=== PATIENT | female | born 1990 | race African-American/Black ===

== ENCOUNTER 2017-01-15 09:06 | Emergency (ER) | payer OTHER ==
[2017-01-15 09:19] VITALS: BP 125/72; PULSE 111; TEMP 98; BMI 31.0
--- NOTE | 2017-01-15 10:26 | PDOC ---
History of Present Illness - General Chief Complaint: Cold Symptoms Stated Complaint: STREP THROAT Time Seen by Provider: 01/15/17 09:35 History Source: Patient Exam Limitations: No Limitations - History of Present Illness Initial Comments: 01/15/17 10:27 Chief complaint: Sore throat, productive cough with yellowish green sputum, nasal congestion 4 days History of present illness: Patient is a 26-year-old female with a history of asthma here today complaining of sore throat, with nasal congestion, and productive cough with yellowish green sputum for the last 4 days. Patient reports that yesterday she used her asthma pump 3 times did not use it at all today. Patient denies any shortness of breath or difficulty swallowing. 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 Patient denies any nausea vomiting or diarrhea. Patient denies any recent travel. Patient denies any fever. Timing/Duration: intermittent (for 4 days ) Severity: mild Associated Symptoms: reports: cough (productive greenish phelgm ), other (nasal congestion, sore throAt, wheezing yesterday ) Past History - Past Medical History Allergies/Adverse Reactions: Allergies Allergy/AdvReac Type Severity Reaction Status Date / Time No Known Allergies Allergy Verified 01/15/17 09:16 Home Medications: Ambulatory Orders Azithromycin [Zithromax 250mg Tablets -] 250 mg PO UTDICT #6 tab 01/15/17 Asthma: Yes Cancer: No Cardiac Disorders: No Diabetes: No HTN: No Seizures: No Thyroid Disease: No - Psycho/Social/Smoking Cessation Hx Anxiety: No Suicidal Ideation: No Smoking History: Current every day smoker Have you smoked in the past 12 months: Yes Number of Cigarettes Smoked Daily: 10 Information on smoking cessation initiated: No Hx Alcohol Use: No Drug/Substance Use Hx: No Substance Use Type: None Hx Substance Use Treatment: No Review of Systems - Review of Systems Able to Perform ROS?: Yes Constitutional: No: Symptoms Reported HEENTM: Yes: Nose Congestion, Throat Pain Respiratory: Yes: Productive cough (greenish yellow ) Cardiac (ROS): No: Symptoms Reported ABD/GI: No: Symptoms Reported : No: Symptoms Reported Musculoskeletal: No: Symptoms Reported Integumentary: No: Symptoms Reported Neurological: No: Symptoms reported *Physical Exam - Vital Signs Last Vital Signs Temp Pulse Resp BP Pulse Ox 98 F 111 H 19 125/72 99 01/15/17 09:17 01/15/17 09:17 01/15/17 09:17 01/15/17 09:17 01/15/17 09:17 - Physical Exam General Appearance: Yes: Appropriately Dressed HEENT: positive: TMs Normal, Pharyngeal Erythema, Nasal Congestion, Rhinorrhea ( clear). negative: Tonsillar Exudate, Tonsillar Erythema Neck: negative: Lymphadenopathy (R), Lymphadenopathy (L) Respiratory/Chest: positive: Lungs Clear, Normal Breath Sounds. negative: Chest Tender, Respiratory Distress Cardiovascular: positive: Regular Rhythm, Regular Rate, S1, S2 Integumentary: positive: Normal Color Neurologic: positive: Alert, Responsive Medical Decision Making - Medical Decision Making 01/15/17 10:30 Patient is a 26-year-old female with a history of asthma here today complaining of sore throat, with nasal congestion, and productive cough with yellowish green sputum for the last 4 days. Patient reports that yesterday she used her asthma pump 3 times did not use it at all today. Patient denies any shortness of breath or difficulty swallowing. 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 Patient denies any nausea vomiting or diarrhea. Patient denies any recent travel. Patient denies any fever. 01/15/17 10:31 pharyngitis r/o strep throat Bronchitis PLAN: throat C & S rapid negative azithromycin 250 mg 2 tabs today, than one tab daily for following 4 days 01/15/17 11:38 *DC/Admit/Observation/Transfer Diagnosis at time of Disposition: Bronchitis Pharyngitis, acute Qualifiers: Pharyngitis/tonsillitis etiology: unspecified etiology Qualified Code(s): J02.9 - Acute pharyngitis, unspecified - Discharge Dispostion Disposition: HOME Condition at time of disposition: Stable - Patient Instructions Additional Instructions: follow up with primary care physician as soon as possible return to emergency room if symptoms worsen or any difficulty breathing use pump as needed as previously ordered Patient voiced undertanding of discharge instructions and all questions were answered
== END 2017-01-15 11:51 | disposition home or self-care (01) ==
LOC: JERFT 09:06
DX: J40 Bronchitis, not specified as acute or chronic (principal); J02.9 Acute pharyngitis, unspecified; J45.909 Unspecified asthma, uncomplicated; F17.210 Nicotine dependence, cigarettes, uncomplicated
CPT/HCPCS: 87070; 87430; 99281-25

== ENCOUNTER 2017-05-06 13:56 | Emergency (ER) | payer OTHER ==
[2017-05-06 14:09] VITALS: BP 143/92; PULSE 89; TEMP 98.2; BMI 30.5
--- NOTE | 2017-05-06 14:59 | PDOC ---
History of Present Illness - General Chief Complaint: Pain Stated Complaint: SENT BY PCP FOR RIB PAIN Time Seen by Provider: 05/06/17 14:15 - History of Present Illness Initial Comments: 05/06/17 14:46 CHIEF COMPLAINT: rib pain HISTORY OF PRESENT ILLNESS: 26 yo F with no significant PMH [facility] with rib pain x 1 week. Patient reports that she saw her PMD last week for the rib pain and had a negative chest x-ray. Patient states she feels pain on inspiration and the pain is reproducible. She states that she was told by her doctor that she had "swelling to the cartilage between my ribs." She reports that she was told to take Aleve and use a heating pad, which she did, but that did not provide any relief. She denies any use of hormones or control, any recent travel or extend period of being sedentary. She denies any recent trauma or injury. PAST MEDICAL HISTORY: Denies past medical history FAMILY HISTORY: Denies SOCIAL HISTORY:Current smoker. Denies alcohol, illicit drug use. SURGICAL HISTORY: Denies ALLERGIES: No known drug allergies REVIEW OF SYSTEMS General/Constitutional: Denies fever or chills. Denies weakness, weight change. HEENT: Denies change in vision. Denies ear pain or discharge. Denies sore throat. Cardiovascular: "I guess kind of some shortness of breath." Respiratory: Denies cough, wheezing, or hemoptysis. Gastrointestinal: Denies nausea, vomiting, diarrhea or constipation. Denies rectal bleeding. Genitourinary: Denies dysuria, frequency, or change in urination. Musculoskeletal: Pain to left lower ribs. Denies joint or muscle swelling or pain. Denies neck or back pain. Skin and breasts: Denies rash or easy bruising. PHYSICAL EXAM General Appearance: Well-appearing, appropriately dressed. No apparent distress. HEENT: EOMI, PERRLA, normal ENT inspection, normal voice, TMs normal, pharynx normal. No conjunctival pallor. No photophobia, scleral icterus. Neck: Supple. Trachea midline. No tenderness, rigidity, carotid bruit, stridor , lymphadenopathy, or thyromegaly. Respiratory/Chest: Lungs CTAB. No shortness of breath, chest tenderness, respiratory distress, accessory muscle use. No crackles, rales, rhonchi, stridor , wheezing, dullness Cardiovascular: RRR. S1, S2. Gastrointestinal/Abdominal: Normal bowel sounds. Abdomen soft, non-distended. No tenderness or rebound tenderness. No organomegaly, pulsatile mass, guarding , hernia, hepatomegaly, splenomegaly. Musculoskeletal/Extremities: Reproducible tenderness to L lower rib. FROM of all extremities, normal capillary refill. Pelvis Stable. No CVA tenderness. No tenderness to extremities, pedal edema, swelling, erythema or deformity. Integumentary: Appropriate color, dry, warm. No cyanosis, erythema, jaundice or rash Neurologic: public health aide II-XII intact. Fully oriented, alert. Appropriate mood/affect. Motor strength 5/5. No Past History - Past Medical History Allergies/Adverse Reactions: Allergies Allergy/AdvReac Type Severity Reaction Status Date / Time No Known Allergies Allergy Verified 05/06/17 14:09 Home Medications: Ambulatory Orders Cyclobenzaprine HCl [Flexeril 10 mg] 10 mg PO HS PRN #5 tablet 05/06/17 Diclofenac Sodium [Voltaren -] 75 mg PO BID #28 tablet. 05/06/17 Asthma: Yes Cancer: No Cardiac Disorders: No Diabetes: No HTN: No Seizures: No Thyroid Disease: No - Psycho/Social/Smoking Cessation Hx Anxiety: No Suicidal Ideation: No Smoking History: Current every day smoker Have you smoked in the past 12 months: Yes Number of Cigarettes Smoked Daily: 10 Information on smoking cessation initiated: No Hx Alcohol Use: No Drug/Substance Use Hx: No Substance Use Type: None Hx Substance Use Treatment: No *Physical Exam - Vital Signs Last Vital Signs Temp Pulse Resp BP Pulse Ox 98.2 F 89 20 143/92 98 05/06/17 14:06 05/06/17 14:06 05/06/17 14:06 05/06/17 14:06 05/06/17 14:06 Medical Decision Making - Medical Decision Making 05/06/17 14:59 26 yo F with no significant PMH [facility] with [facility] pain x 1 week. Vital signs stable. LMP 05/02, patient reports possible chance of . -Urine -Toradol IM Patient is PERC negative. Agree with patient's PMD that patient's rib pain is secondary to costochondritis or msk pain. Patient reassessed; states her pain is feeling better after Toradol. Rx for Diclofenac sent to pharm. Advised patient to take medication as prescribed and f/u with PMD if pain persists. *DC/Admit/Observation/Transfer Diagnosis at time of Disposition: Intercostal muscle pain - Discharge Dispostion Disposition: HOME Condition at time of disposition: Stable Admit: No - Prescriptions Prescriptions: Cyclobenzaprine HCl [Flexeril 10 mg] 10 mg PO HS PRN #5 tablet PRN Reason: muscle pain Diclofenac Sodium [Voltaren -] 75 mg PO BID #28 tablet.dr - Referrals Referrals: Lloyd Stanford MD [Primary Care Provider] - - Patient Instructions Printed Discharge Instructions: DI for Costochondritis, Muscle Strain Additional Instructions: Please take medication as prescribed. Follow up with Dr. Stanford on May 21 as planned. If you develop any palpitations, difficulty breathing, chest pain, fever, chills, headache, vomiting, or any new or worsening symptoms, please return to the ER.
[2017-05-06] MEDS ORDERED: KETOROLAC TROMETHAMINE 60 MG/2 ML VIAL IM ONE (15:36)
[2017-05-06] MEDS ORDERED: KETOROLAC TROMETHAMINE 60 MG/2 ML VIAL ONE (15:57)
== END 2017-05-06 16:42 | disposition home or self-care (01) ==
LOC: JERFT 13:56
PROC: 3E0233Z Introduction of Anti-inflammatory into Muscle, Percutaneous Approach (ICD-10-PCS; principal; 2017-05-06)
DX: M94.0 Chondrocostal junction syndrome [Tietze] (principal)
CPT/HCPCS: 84703; 96372; 99281-25

== ENCOUNTER 2017-08-01 12:31 | Emergency (ER) | payer OTHER ==
[2017-08-01 12:38] VITALS: TEMP 98.4; BMI 29.0
--- NOTE | 2017-08-01 12:56 | PDOC ---
History of Present Illness - General Chief Complaint: Pain Stated Complaint: LOWER PELVIC PAIN Time Seen by Provider: 08/01/17 12:55 Past History - Past Medical History Allergies/Adverse Reactions: Allergies Allergy/AdvReac Type Severity Reaction Status Date / Time No Known Allergies Allergy Verified 08/01/17 12:37 Home Medications: Ambulatory Orders Albuterol Sulfate Inhaler - [Ventolin Hfa Inhaler -] 1 - 2 inh PO Q4H 08/01/17 Ciprofloxacin [Cipro -] 500 mg PO Q12H #14 tablet 08/01/17 Metronidazole 500 mg PO TID #30 tablet 08/01/17 Mometasone/Formoterol [Dulera 100 Mcg/5 Mcg Inhaler] 2 inh IH BID 08/01/17 Tramadol HCl 50 mg PO TID PRN #10 tablet MDD 3 08/01/17 Asthma: Yes Cancer: No Cardiac Disorders: No Diabetes: No HTN: No Seizures: No Thyroid Disease: No - Suicide/Smoking/Psychosocial Hx Smoking History: Current every day smoker Have you smoked in the past 12 months: Yes Number of Cigarettes Smoked Daily: 10 Information on smoking cessation initiated: Yes 'Breaking Loose' booklet given: 08/01/17 Hx Alcohol Use: Yes (SOCIAL) Drug/Substance Use Hx: No Substance Use Type: None Hx Substance Use Treatment: No *Physical Exam - Vital Signs Last Vital Signs Temp Pulse Resp BP Pulse Ox 98.4 F 83 20 144/91 100 08/01/17 12:34 08/01/17 12:34 08/01/17 12:34 08/01/17 12:34 08/01/17 12:34 ED Treatment Course - LABORATORY CBC & Chemistry Diagram: 08/01/17 13:45 08/01/17 13:45 Medical Decision Making - Medical Decision Making 08/01/17 16:28 Patient is a 26-year-old female past medical history of ovarian cysts, who presents to the emergency department complaining of right lower abdominal pain, nausea and diarrhea. Differential diagnosis includes but is not limited to appendicitis, colitis, ovarian cysts, viral illness. 1.CBC, CMP, lipase, PT/INR, UA, UC, U 2.CT abdomen with contrast 3.IV fluids, Zofran 08/01/17 17:25 Pt. still c/o pain. Will order 4mg IV morphine 08/01/17 18:14 Impression: 1.normal appendix. No evidence of intestinal obstruction. 2.apparent wall thickening in the descending colon into a lesser extent into the ascending colon may be secondary to under distention, although a mild nonspecific inflammatory or infectious colitis is not entirely excluded please correlate clinically. Upon further history patient states that she didn't take amoxicillin approximately 4 weeks ago and finished a 1 week course 3 weeks ago for wisdom teeth extraction. C. difficile is within the scope of differential diagnosis given diarrhea colon wall inflammation. We'll treat with antibiotics as an outpatient. We'll collect stool for occult blood and stool cultures. *DC/Admit/Observation/Transfer Diagnosis at time of Disposition: Colitis - Discharge Dispostion Disposition: HOME Condition at time of disposition: Improved Admit: No - Referrals Referrals: Lloyd Stanford MD [Primary Care Provider] - Bertram Russ MD [Staff Physician] - - Patient Instructions Printed Discharge Instructions: DI for Colitis Additional Instructions: You have colitis which may have been caused by your recent antibiotic use. You were prescribed two antibiotics. Take both as prescribed and finish the whole dose even if you feel better. You may take ibuprofen for pain, 800mg TID not to exceed 3,000mg per day. If you have break through pain, you may take the tramadol. Take as prescribed. Follow up with your primary care doctor on Thursday. You were given a referral for a gastrointestinal doctor. Make an appointment to see him on Thursday. Return to the ED if you have fevers, chills, worsening pain, nausea, vomiting, blood in the stool, or have any changes in your symptoms. - Post Discharge Activity Forms/Work/School Notes: Back to Work
[2017-08-01] MEDS ORDERED: ONDANSETRON 4 MG/2 ML VIAL IVPUSH ONE (13:34)
[2017-08-01] MEDS ORDERED: SODIUM CHLORIDE 1,000 ML IV STA ×2 (13:34→16:37)
[2017-08-01] MEDS ORDERED: KETOROLAC TROMETHAMINE 30 MG/1 ML VIAL IVPUSH ONE (13:36)
[2017-08-01] MEDS ORDERED: ONDANSETRON 4 MG/2 ML VIAL ONE (13:49)
[2017-08-01] MEDS ORDERED: KETOROLAC TROMETHAMINE 30 MG/1 ML VIAL ONE (13:49)
[2017-08-01 13:52] LABS: URINE APPEARANCE CLEAR; URINE BILIRUBIN NEGATIVE (NEGATIVE); URINE BLOOD NEGATIVE (NEGATIVE); URINE COLOR YELLOW; URINE GLUCOSE (UA) NEGATIVE (NEGATIVE); URINE KETONE TRACE (NEGATIVE); URINE LEUK ESTERASE NEGATIVE (NEGATIVE); URINE NITRITE NEGATIVE (NEGATIVE); URINE PROTEIN NEGATIVE (NEGATIVE); URINE UROBILINOGEN NEGATIVE mg/dL (0.2-1.0)
[2017-08-01 13:53] LABS: BASOPHIL 0.6 % (0-2.0); MCH 31.7 pg (25.7-33.7); MCHC 33.5 g/dl (32.0-36.0); MEAN CELL VOLUME 94.5 fl (80-96); MEAN PLT VOLUME 9.5 fl (7.5-11.1); PLATELET COUNT 252 K/MM3 (134-434); WHITE BLOOD COUNT 7.1 K/mm3 (4.0-10.0)
[2017-08-01 14:09] LABS: INR 1.21 (0.82-1.09); PROTHROMBIN TIME (PATIENT) 13.4 SEC (9.98-11.88)
[2017-08-01 14:12] LABS: ALBUMIN 4.5 g/dl (3.4-5.0); ANION GAP 7 (8-16); BILIRUBIN,TOTAL 0.2 mg/dL (0.2-1.0); CALCIUM 9.6 mg/dL (8.5-10.1); CO2 29 mmol/L (21-32); CREATININE 0.9 mg/dL (0.55-1.02); GLUCOSE,RANDOM 84 mg/dL (74-106); SGOT/AST 16 U/L (15-37); SGPT/ALT 28 U/L (12-78); TOT PROT 7.8 g/dl (6.4-8.2)
[2017-08-01 14:13] LABS: ALK PHOS 88 U/L (45-117)
[2017-08-01] MEDS ORDERED: morphine CARPU-JECT 4 MG/1 ML DISP.SYRIN IVPUSH ONE (17:19)
[2017-08-01] MEDS ORDERED: morphine CARPU-JECT 4 MG/1 ML DISP.SYRIN ONE (17:22)
[2017-08-01 18:39] VITALS: BP 116/73; PULSE 48
--- NOTE | 2017-08-01 18:43 | PDOC ---
*Physical Exam - Vital Signs Last Vital Signs Temp Pulse Resp BP Pulse Ox 98.4 F 83 20 144/91 100 08/01/17 12:34 08/01/17 12:34 08/01/17 12:34 08/01/17 12:34 08/01/17 12:34 ED Treatment Course - LABORATORY CBC & Chemistry Diagram: 08/01/17 13:45 08/01/17 13:45 - ADDITIONAL ORDERS Additional order review: Laboratory Results 08/01/17 08/01/17 08/01/17 18:03 13:45 13:45 PT with INR INR Sodium 140 Potassium 3.9 Chloride 104 Carbon Dioxide 29 D Anion Gap 7 L BUN 12 Creatinine 0.9 D Creat Clearance w eGFR > 60 Random Glucose 84 Calcium 9.6 Total Bilirubin 0.2 AST 16 ALT 28 D Alkaline Phosphatase 88 D Total Protein 7.8 Albumin 4.5 D Lipase 88 Urine Color Urine Appearance Urine pH Urine Protein Urine Glucose (UA) Urine Ketones Urine Blood Urine Nitrite Urine Bilirubin Urine Urobilinogen Urine HCG, Qual Stool Occult Blood Negative 08/01/17 08/01/17 13:45 13:20 PT with INR 13.40 H INR 1.21 H Sodium Potassium Chloride Carbon Dioxide Anion Gap BUN Creatinine Creat Clearance w eGFR Random Glucose Calcium Total Bilirubin AST ALT Alkaline Phosphatase Total Protein Albumin Lipase Urine Color Yellow Urine Appearance Clear Urine pH 8.0 Urine Protein Negative Urine Glucose (UA) Negative Urine Ketones Trace H Urine Blood Negative Urine Nitrite Negative Urine Bilirubin Negative Urine Urobilinogen Negative Urine HCG, Qual Negative Stool Occult Blood 08/01/17 13:45 RBC 4.38 D MCV 94.5 MCHC 33.5 RDW 14.0 MPV 9.5 Neutrophils % 60.0 D Lymphocytes % 30.2 D Monocytes % 8.2 Eosinophils % 1.0 Basophils % 0.6 - Medications Given in the ED: ED Medications Discontinued Medications Generic Name Dose Route Start Last Admin Trade Name Freq PRN Reason Stop Dose Admin Sodium Chloride 1,000 mls @ 1,000 mls/hr 08/01/17 13:34 08/01/17 13:54 Normal Saline - IV 08/01/17 14:33 1,000 mls/hr ASDIR STA Administration Sodium Chloride 1,000 mls @ 1,000 mls/hr 08/01/17 16:37 08/01/17 16:50 Normal Saline - IV 08/01/17 17:36 1,000 mls/hr ASDIR STA Administration Ketorolac Tromethamine 30 mg 08/01/17 13:36 08/01/17 13:54 Toradol Injection - IVPUSH 08/01/17 13:37 30 mg ONCE ONE Administration Morphine Sulfate 4 mg 08/01/17 17:19 08/01/17 17:36 Morphine Injection - IVPUSH 08/01/17 17:20 4 mg ONCE ONE Administration Ondansetron HCl 4 mg 08/01/17 13:34 08/01/17 13:54 Zofran Injection IVPUSH 08/01/17 13:35 4 mg ONCE ONE Administration Medical Decision Making - Medical Decision Making 08/01/17 18:17 26 yo F presenting to the ER with a complaint of abdominal pain and diarrhea No fevers or chills Pt s/p course of Amoxicillin CT demonstrates colitis ? C diff Pt to be asked to give stool culture 08/01/17 18:18 Pt seen by Midlevel Provider under my direct supervision Pt interviewed and examined Ancillary studies reviewed I agree with plan as outlined by Midlevel Provider
== END 2017-08-01 20:31 | disposition home or self-care (01) ==
LOC: JER 12:31
PROC: 3E0337Z Introduction of Electrolytic and Water Balance Substance into Peripheral Vein, Percutaneous Approach (ICD-10-PCS; principal; 2017-08-01)
PROC: 3E033NZ Introduction of Analgesics, Hypnotics, Sedatives into Peripheral Vein, Percutaneous Approach (ICD-10-PCS; 2017-08-01)
PROC: 3E0333Z Introduction of Anti-inflammatory into Peripheral Vein, Percutaneous Approach (ICD-10-PCS; 2017-08-01)
DX: K52.9 Noninfective gastroenteritis and colitis, unspecified (principal)
CPT/HCPCS: 36415; 74177-TC; 80053; 81003; 82272; 83690; 84703; 85025; 85610; 87086; 96361; 96374; 96375; 99283-25

== ENCOUNTER 2017-08-20 10:29 | Emergency (ER) | payer OTHER ==
[2017-08-20 10:57] VITALS: BMI 30.2
[2017-08-20] MEDS ORDERED: morphine CARPU-JECT 2 MG/1 ML DISP.SYRIN IVPUSH ONE (11:14)
[2017-08-20] MEDS ORDERED: ONDANSETRON 4 MG/2 ML VIAL IVPB ONE (11:14)
[2017-08-20] MEDS ORDERED: SODIUM CHLORIDE 1,000 ML IV ONE (11:14)
--- NOTE | 2017-08-20 11:14 | PDOC ---
History of Present Illness - General History Source: Patient Exam Limitations: No Limitations - History of Present Illness Initial Comments: 08/20/17 11:27 The patient is a 26 year old female, with a significant past medical history of asthma, who presents to the emergency department with abdominal pain for about 2 weeks. The patient reports about 2 weeks, 08/01/17, during the onset of her symptoms coming this ER receiving a full work for abdominal pain, nausea,and vomiting. She notes after an abdominal CT she was diagnosed with colitis, and was discharged home on antibiotics (Cipro and Flagyl) and her sypmtoms improved. She states the past few days, since stopping her prescription having the onset of her pain, describing it as a dull ache sensation with sensations of having a bowel movement but hasnt had any diarrhea, bpr. LMP was beginning of July (patient is sexually active). She denies recent fevers, chills, headache or dizziness. She denies recent constipation. She denies recent dysuria, frequency, vag bleeding or discharge, urgency or hematuria. She denies recent chest pain or shortness of breath. Allergies: NKA Past surgical history: None reported. Social history: Nonsmoker. Denies EtOH use and recreational drug use. Primary Care Physician: <Emmett Bach - Last Filed: 08/20/17 11:27> - General History Source: Patient Exam Limitations: No Limitations <Antonio Cantu - Last Filed: 08/20/17 14:33> - General Chief Complaint: Pain, Acute Stated Complaint: NAUSEA Time Seen by Provider: 08/20/17 11:01 Past History <Emmett Bach - Last Filed: 08/20/17 11:27> - Past Medical History Asthma: Yes Cancer: No Cardiac Disorders: No Diabetes: No HTN: No Seizures: No Thyroid Disease: No - Immunization History Immunization Up to Date: Yes - Suicide/Smoking/Psychosocial Hx Smoking History: Current every day smoker Have you smoked in the past 12 months: Yes Number of Cigarettes Smoked Daily: 10 Information on smoking cessation initiated: No 'Breaking Loose' booklet given: 08/01/17 Hx Alcohol Use: No Drug/Substance Use Hx: No Substance Use Type: None Hx Substance Use Treatment: No <Antonio Cantu - Last Filed: 08/20/17 14:33> - Past Medical History Allergies/Adverse Reactions: Allergies Allergy/AdvReac Type Severity Reaction Status Date / Time No Known Allergies Allergy Verified 08/20/17 10:54 Home Medications: Ambulatory Orders Albuterol Sulfate Inhaler - [Ventolin Hfa Inhaler -] 1 - 2 inh PO Q4H PRN Review of Systems - Review of Systems Able to Perform ROS?: Yes Comments:: 08/20/17 11:27 CONSTITUTIONAL: No reported: Fever, Chills, Diaphoresis, Generalized Weakness, Malaise, Loss of Appetite HEENT: No reported: Rhinorrhea, Nasal Congestion, Throat Pain, Throat Swelling, Difficulty Swallowing, Mouth Swelling, Ear Pain, Eye Pain, Visual Changes CARDIOVASCULAR: No reported: Chest Pain, Syncope, Palpitations, Irregular Heart Rate, Lightheadedness, Peripheral Edema RESPIRATORY: No reported: Cough, Shortness of Breath, SOB with Exertion, Orthopnea, Wheezing , Stridor, Hemoptysis GASTROINTESTINAL: +Abdominal pain, Nausea, Diarrhea, Vomiting. No reported: Constipation, Melena, Hematochezia GENITOURINARY: No reported: Dysuria, Frequency, Urgency, Hesitancy, Flank Pain, Genital Pain MUSCULOSKELETAL: No reported: Myalgia, Arthralgia, Joint Swelling, Back pain, Neck Pain SKIN: No reported: Rash, Itching, Pallor HEMATOLOGIC/IMMUNOLOGIC: No reported: Easy Bleeding, Easy Bruising, Lymphadenopathy, Frequent infections ENDOCRINE: No reported: Unexplained Weight Gain, Unexplained Weight Loss, Heat Intolerance , Cold Intolerance NEUROLOGIC: No reported: Headache, Focal Weakness, Paresthesias, Vertigo, Lightheadedness, Unsteady Gait, Seizure, Mental Status Changes, Incontinence PSYCHIATRIC: No reported: Anxiety, Depression <Emmett Bach - Last Filed: 08/20/17 11:27> *Physical Exam - Vital Signs Last Vital Signs Temp Pulse Resp BP Pulse Ox 98.4 F 92 H 14 126/77 100 08/20/17 10:55 08/20/17 10:55 08/20/17 10:55 08/20/17 10:55 08/20/17 10:55 - Physical Exam Comments: 08/20/17 11:27 GENERAL: The patient is awake, alert, and fully oriented, Nontoxic - in no acute distress. HEAD: Normocephalic, atraumatic. EYES: extraocular movements intact, sclera anicteric, conjunctiva clear. ENT: Normal voice, Moist mucous membranes. NECK: Normal range of motion, supple LUNGS: Breath sounds equal, clear to auscultation bilaterally. No wheezes, no rhonchi, no rales. HEART: Regular rate and rhythm, without murmur, rub or gallop. ABDOMEN: Soft, Mild diffuse abdominal tenderness, normoactive bowel sounds. No guarding, no rebound.No CVA tenderness EXTREMITIES: Normal range of motion, no edema. No clubbing or cyanosis. No cords , erythema, or tenderness. NEUROLOGICAL: No facial asymmetry, Normal speech. PSYCH: Normal mood, normal affect. SKIN: Warm, Dry, normal turgor. <Emmett Bach - Last Filed: 08/20/17 11:27> - Vital Signs Last Vital Signs Temp Pulse Resp BP Pulse Ox 98.4 F 92 H 14 126/77 100 08/20/17 10:55 08/20/17 10:55 08/20/17 10:55 08/20/17 10:55 08/20/17 10:55 <Antonio Cantu - Last Filed: 08/20/17 14:33> ED Treatment Course - LABORATORY CBC & Chemistry Diagram: 08/20/17 11:35 08/20/17 11:35 <Antonio Cantu - Last Filed: 08/20/17 14:33> Medical Decision Making - Medical Decision Making 08/20/17 11:14 26y F hx of asthma presents with complaint of lower abdominal pain associated with nausea, pain is crampy in nature, no diarrhea, pt notes similar symptoms 2 weeks ago, and came here and was dx with colitis, was started on abx with improvement of symptoms until sypmtoms reucrred. no associated fever/chills, bloody stools. on exam pt well appearing, no distress, with mild lower abd tenderness differential includes possible , ectopic, gastritis will ck labs, ua, hcg will treat pt sypmtomatically with fluids, zofran wlil reassess A portion of this note was documented by scribe services under my direction. I have reviewed the details of the note, within reason, and agree with the documentation with the following case summary and management plan written by me 08/20/17 14:32 labs uremarkable pt feeling improved tolerated oral intake abd resassessed and is soft will dc with pmd fu return precautions were discussed I discussed the physical exam findings, ancillary test results and final diagnoses with the patient. I answered all of the patient's questions. The patient was satisfied with the care received and felt comfortable with the discharge plan and treatment plan. The patient will call their primary care physician within 24 hours to arrange follow-up and will return to the Emergency Department with any new, persistent or worsening symptoms. <Antonio Cantu - Last Filed: 08/20/17 14:33> *DC/Admit/Observation/Transfer - Attestations Scribe Attestion: 08/20/17 11:27 Documentation prepared by Emmett Bach, acting as center medical and lab director for Antonio Cantu MD. <Emmett Bach - Last Filed: 08/20/17 11:27> - Discharge Dispostion Admit: No <Antonio Cantu - Last Filed: 08/20/17 14:33> Diagnosis at time of Disposition: Abdominal pain Qualifiers: Abdominal location: lower abdomen, unspecified Qualified Code(s): R10.30 - Lower abdominal pain, unspecified; R10.30 - Lower abdominal pain, unspecified - Discharge Dispostion Disposition: HOME Condition at time of disposition: Improved - Referrals Referrals: Lloyd Stanford MD [Primary Care Provider] - - Patient Instructions Printed Discharge Instructions: DI for Abdominal Pain-Adult Additional Instructions: Return to the emergency department immediately with ANY new, persistent or worsening symptoms including worsening abdominal pain, fevers, inability to tolerate oral intake, chest pain, shortness of breath or any other concerns. Stay well hydrated. You MUST call and follow up with your doctor tomorrow. Your emergency department visit is not complete without a followup with your doctor for reevaluation. Please make sure your doctor reviews the results of your emergency evaluation. Print Language: WALLISIAN
[2017-08-20] MEDS ORDERED: morphine CARPU-JECT 10 MG/1 ML DISP.SYRIN ONE (11:24)
[2017-08-20] MEDS ORDERED: ONDANSETRON 4 MG/2 ML VIAL ONE (11:24)
[2017-08-20 11:52] LABS: BASOPHIL 0.4 % (0-2.0); EOSINOPHIL 0.6 % (0-4.5); MCH 31.1 pg (25.7-33.7); MCHC 32.8 g/dl (32.0-36.0); MEAN CELL VOLUME 94.9 fl (80-96); MEAN PLT VOLUME 10.3 fl (7.5-11.1); NEUTROPHILS 68.8 % (42.8-82.8); PLATELET COUNT 200 K/MM3 (134-434); RDW 13.7 % (11.6-15.6); WHITE BLOOD COUNT 7.3 K/mm3 (4.0-10.0)
[2017-08-20 11:56] LABS: URINE APPEARANCE SLCLOUDY; URINE BILIRUBIN NEGATIVE (NEGATIVE); URINE BLOOD NEGATIVE (NEGATIVE); URINE COLOR STRAW; URINE GLUCOSE (UA) NEGATIVE (NEGATIVE); URINE KETONE NEGATIVE (NEGATIVE); URINE NITRITE NEGATIVE (NEGATIVE); URINE PROTEIN NEGATIVE (NEGATIVE); URINE UROBILINOGEN NEGATIVE mg/dL (0.2-1.0)
[2017-08-20 12:17] LABS: ALBUMIN 3.9 g/dl (3.4-5.0); ANION GAP 6 (8-16); BILIRUBIN,TOTAL 0.3 mg/dL (0.2-1.0); CO2 26 mmol/L (21-32); CREATININE 0.8 mg/dL (0.55-1.02); GLUCOSE,RANDOM 86 mg/dL (74-106); SGOT/AST 17 U/L (15-37); SGPT/ALT 38 U/L (12-78); TOT PROT 7.2 g/dl (6.4-8.2)
[2017-08-20 12:18] LABS: ALK PHOS 72 U/L (45-117)
[2017-08-20 14:48] VITALS: BP 122/52; PULSE 67; TEMP 98.2
[2017-08-20 16:44] LABS: URINE LEUK ESTERASE Negative (NEGATIVE)
== END 2017-08-20 15:00 | disposition home or self-care (01) ==
LOC: JER 10:29
PROC: 3E033NZ Introduction of Analgesics, Hypnotics, Sedatives into Peripheral Vein, Percutaneous Approach (ICD-10-PCS; principal; 2017-08-20)
PROC: 3E033GC Introduction of Other Therapeutic Substance into Peripheral Vein, Percutaneous Approach (ICD-10-PCS; 2017-08-20)
PROC: 3E0337Z Introduction of Electrolytic and Water Balance Substance into Peripheral Vein, Percutaneous Approach (ICD-10-PCS; 2017-08-20)
DX: R10.30 Lower abdominal pain, unspecified (principal); J45.909 Unspecified asthma, uncomplicated; F17.210 Nicotine dependence, cigarettes, uncomplicated
CPT/HCPCS: 36415; 80053; 81003; 84703; 85025; 99284-25

== ENCOUNTER 2017-12-11 17:03 | Emergency (ER) | payer OTHER ==
[2017-12-11 17:19] VITALS: BP 118/88; TEMP 97.8; BMI 29.7
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
[2017-12-11] MEDS ORDERED: KETOROLAC TROMETHAMINE 60 MG/2 ML VIAL IM ONE (18:17)
[2017-12-11] MEDS ORDERED: KETOROLAC TROMETHAMINE 60 MG/2 ML VIAL ONE (18:57)
[2017-12-11 21:55] VITALS: PULSE 85
== END 2017-12-11 19:16 | disposition home or self-care (01) ==
LOC: JERFT 17:03
PROC: 3E0233Z Introduction of Anti-inflammatory into Muscle, Percutaneous Approach (ICD-10-PCS; principal; 2017-12-11)
DX: R07.82 Intercostal pain (principal); K59.00 Constipation, unspecified
CPT/HCPCS: 71046-TC-FY; 71101-TC-FY; 84703; 96372; 99281-25

== ENCOUNTER 2018-05-30 01:12 | Emergency (ER) | payer OTHER ==
[2018-05-30 01:42] VITALS: BP 124/61; PULSE 81; TEMP 98.4; BMI 29.7
[2018-05-30] MEDS ORDERED: DIPHTH,PERTUSS(ACELL),TET VAC 0.5 ML VIAL IM ONE (01:50)
--- NOTE | 2018-05-30 01:50 | PDOC ---
History of Present Illness - General History Source: Patient Exam Limitations: No Limitations - History of Present Illness Initial Comments: 05/30/18 04:41 [place] 27 YOF with a past medical history of IBS, ovarian cysts, Asthma, and Multiple slip disks, who was brought by EMS to the ED with complaints of multiple lacerations and abrasions to feet and right arm/hand, s/p cat attack. Patient reports being attacked by a friends pet cat when she attempted to prevent it from continuing to attack her daughter. She reports being bitten and scratched multiply along right arm/hand as well as her feet bilaterally. Patient reports immediately calling EMS to be brought to the ED for further evaluation. Denies fevers, chills. Denies nausea, vomiting. Denies chest pain, sob. Denies numbness, tingles. Denies any other symptoms. Allergies: None Social history: Current smoker. Social alcohol use. No illicit drugs Surgical history: None PMD: Dr. stanford <Ras Blake - Last Filed: 05/30/18 04:40> - General History Source: Patient Exam Limitations: No Limitations <Nikki Carvajal - Last Filed: 05/30/18 05:48> - General Chief Complaint: Bite Stated Complaint: CAT SCRATCH Time Seen by Provider: 05/30/18 01:30 Past History <Ras Blake - Last Filed: 05/30/18 04:40> - Past Medical History Asthma: Yes Cancer: No Cardiac Disorders: No COPD: No Diabetes: No HTN: No Seizures: No Thyroid Disease: No - Immunization History Immunization Up to Date: Yes - Suicide/Smoking/Psychosocial Hx Smoking History: Never smoked Have you smoked in the past 12 months: No Number of Cigarettes Smoked Daily: 10 Information on smoking cessation initiated: No 'Breaking Loose' booklet given: 08/01/17 Hx Alcohol Use: No Drug/Substance Use Hx: No Substance Use Type: None Hx Substance Use Treatment: No <Nikki Carvajal - Last Filed: 05/30/18 05:48> - Past Medical History Allergies/Adverse Reactions: Allergies Allergy/AdvReac Type Severity Reaction Status Date / Time No Known Allergies Allergy Verified 05/30/18 01:41 Home Medications: Ambulatory Orders Albuterol Sulfate Inhaler - [Ventolin HFA Inhaler -] 1 - 2 inh PO Q4H PRN Cyclobenzaprine HCl [Flexeril -] 10 mg PO TID PRN #21 tablet 12/11/17 Amoxicillin/Potassium Clav [Augmentin 875-125 Tablet] 1 each PO BID 10 Days #20 tablet 05/30/18 Dicyclomine HCl [Bentyl -] 0 mg PO 05/30/18 Review of Systems - Review of Systems Able to Perform ROS?: Yes Comments:: 05/30/18 04:41 ROS: see HPI as documented. Of relevance, Skin: multiple wounds and abrasions/lacerations. MSK: muscle pain; no joint pain. Hematologic: bleeding controlled. All Other Systems: Reviewed and Negative <Ras Blake - Last Filed: 05/30/18 04:40> *Physical Exam - Vital Signs Last Vital Signs Temp Pulse Resp BP Pulse Ox 98.4 F 81 18 124/61 100 05/30/18 01:20 05/30/18 01:20 05/30/18 01:20 05/30/18 01:20 05/30/18 01:20 - Physical Exam Comments: 05/30/18 04:41 General: Well appearing, awake and alert, anxious, in pain Chest: no chest wall tenderness Lungs: no respiratory distress Heart: 2+ peripheral pulses throughout, no peripheral edema Abdomen: soft, NTND Back: nontender, normal inspection and ROM MSK: no edema, MENESES x4, ROM intact. normal bulk and tone. Neuro: alert, oriented appropriately; no focal neurologic deficits. SILT, 5/5 distal and prox strength in all extrem. Skin: warm and well perfused, cap refill <2 sec, normal color; +multiple skin / cat scratches/abrasions/puncture wounds: +single 3 cm linear superficial laceration to the dorsum of the right foot. +single 2 cm laceration with multiple scratches and puncture sites at left dorsum foot. +Multiple scratches & puncture wounds to right arm. +Lateral hand abrasions. <Ras Blake - Last Filed: 05/30/18 04:40> - Vital Signs Last Vital Signs Temp Pulse Resp BP Pulse Ox 98.4 F 81 18 124/61 100 05/30/18 01:20 05/30/18 01:20 05/30/18 01:20 05/30/18 01:20 05/30/18 01:20 <Nikki Carvajal - Last Filed: 05/30/18 05:48> Procedures - Laceration/Wound Repair Both Distal Leg Wound Length: to 2.5 cm Wound Explored: contaminated Wound's Depth, Shape: superficial Irrigated w/ Saline: Yes Anesthesia: 1% Lidocaine Amount of Anesthetic (ccs): 5 Wound Debrided: minimal Sterile Dressing Applied: Yes (xeroform and gauze dressings) Right Distal Arm Wound Length: to 2.5 cm Wound Explored: contaminated Wound's Depth, Shape: superficial Irrigated w/ Saline: Yes Wound Debrided: minimal Sterile Dressing Applied: Yes (xeroform and gauze dressings) <Nikki Carvajal - Last Filed: 05/30/18 05:48> ED Treatment Course - Medications Given in the ED: ED Medications Discontinued Medications Generic Name Dose Route Start Last Admin Trade Name Freq PRN Reason Stop Dose Admin Amoxicillin/Clavulanate Potassium 1 tab 05/30/18 01:53 05/30/18 03:29 Augmentin - 875mg Tablet PO 05/30/18 01:54 1 tab ONCE ONE Administration Diphtheria/Tetanus/Acell Pertussis 0.5 ml 05/30/18 01:50 05/30/18 03:27 Adacel Adolescent/Adult - IM 05/30/18 01:51 0.5 ml .ONCE ONE Administration Ibuprofen 600 mg 05/30/18 01:51 05/30/18 03:28 Motrin - PO 05/30/18 01:52 600 mg ONCE ONE Administration <Ras Blake - Last Filed: 05/30/18 04:40> Medical Decision Making - Medical Decision Making 05/30/18 02:27 27 YOF with multiple cat bites/scratches to right forearm/hand, bilateral dorsal feet [employer]. tetanus unknown. bleeding controlled; +pain to areas. phys exam as documented with puncture wounds/bites and scratches. Motrin for pain, Augmentin for infection control. Tetanus given. copious irrigation with sterile water/normal saline 1Liter, tolerated without difficulty over affected areas. areas cleaned and dried, xeroform/topical abx, non adherent dressings, gauze and supportive care. wound precautions discussed, monitor for signs of infection including fevers chills, purulence, malodor, pain, swelling, redness or streaking or other worsening s/s. trial of Augmentin x 10 days, if not improving or worsening sx > 24-48 hours, return sooner for reeval/wound check/IV abx. I discussed the physical exam findings, final diagnoses with the patient - copious wound care and irrigation performed, no sutures needed. I answered all of the patient's questions. The patient was satisfied with the care received and felt comfortable with the discharge plan and treatment plan. The patient will return to the Emergency Department with any new, persistent or worsening symptoms. 05/30/18 05:47 <Nikki Carvajal - Last Filed: 05/30/18 05:48> *DC/Admit/Observation/Transfer - Attestations Scribe Attestion: 05/30/18 04:41 Documentation prepared by Ras Blake, acting as medical assistant cardiology for Nikki Carvajal MD. <Ras Blake - Last Filed: 05/30/18 04:40> - Discharge Dispostion Decision to Admit order: No <Nikki Carvajal - Last Filed: 05/30/18 05:48> Diagnosis at time of Disposition: Cat scratch, Cat bite involving extremity - Discharge Dispostion Disposition: HOME Condition at time of disposition: Good - Prescriptions Prescriptions: Amoxicillin/Potassium Clav [Augmentin 875-125 Tablet] 1 each PO BID 10 Days #20 tablet - Referrals Referrals: Lloyd Stanford MD [Primary Care Provider] - - Patient Instructions Printed Discharge Instructions: DI for Animal Bites, DI for Cat Bite Additional Instructions: wound precautions discussed, monitor for signs of infection including fevers chills, purulence, malodor, pain, swelling, redness or streaking or other worsening signs. trial of Augmentin oral antibiotics twice a day x 10 days, if not improving or worsening sx >24-48 hours, return sooner for reeval/wound check /IV abx. follow up with your primary doctor. Print Language: CHINESE
[2018-05-30] MEDS ORDERED: IBUPROFEN 600 MG TABLET (FP) PO ONE ×2 (01:51→02:14)
[2018-05-30] MEDS ORDERED: AMOX TR/POT CLAV 875MG/125MG TABLETS (FP) PO ONE (01:53)
[2018-05-30] MEDS ORDERED: AMOX TR/POT CLAV 875MG/125MG TABLETS (FP) ONE (02:13)
[2018-05-30] MEDS ORDERED: ACETAMINOPHEN 325 MG TABLET (FP) PO ONE (02:22)
[2018-05-30] MEDS ORDERED: LIDOCAINE HCL 1%, 10 MG/ML (20ML VIAL) ONE (03:24)
== END 2018-05-30 05:52 | disposition home or self-care (01) ==
LOC: JER 01:12
PROC: 3E0234Z Introduction of Serum, Toxoid and Vaccine into Muscle, Percutaneous Approach (ICD-10-PCS; principal; 2018-05-30)
DX: S90.872A Other superficial bite of left foot, initial encounter (principal); S90.871A Other superficial bite of right foot, initial encounter; S50.811A Abrasion of right forearm, initial encounter; S60.511A Abrasion of right hand, initial encounter; W55.01XA Bitten by cat, initial encounter; Y93.89 Activity, other specified; Y92.038 Other place in apartment as the place of occurrence of the external cause; Y99.8 Other external cause status
CPT/HCPCS: 90471; 99282-25

== ENCOUNTER 2018-09-04 15:15 | Emergency (ER) | payer OTHER ==
[2018-09-04 15:29] VITALS: BP 129/82; PULSE 88; TEMP 98.6; BMI 30.4
--- NOTE | 2018-09-04 15:36 | PDOC ---
History of Present Illness - General Chief Complaint: Sore Throat Stated Complaint: CHOKING SENSATION Time Seen by Provider: 09/04/18 15:30 History Source: Patient Exam Limitations: No Limitations Past History - Travel Traveled outside of the country in the last 30 days: No Close contact w/someone who was outside of country & ill: No - Past Medical History Allergies/Adverse Reactions: Allergies Allergy/AdvReac Type Severity Reaction Status Date / Time No Known Allergies Allergy Verified 09/04/18 15:23 Home Medications: Ambulatory Orders Ibuprofen 600 mg PO QID PRN #20 tablet 06/10/18 Albuterol Sulfate Inhaler - [Ventolin HFA Inhaler -] 1 - 2 inh PO Q4H #1 inhaler 09/04/18 Ibuprofen 800 mg PO TID #30 tablet 09/04/18 Ondansetron [Zofran Odt -] 4 mg SL TID #10 od.tablet 09/04/18 predniSONE ORAL SOLUTION [Deltasone Oral Solution 5 MG/5 ML -] 40 mg PO DAILY # 160 ml 09/04/18 Asthma: Yes Cancer: No Cardiac Disorders: No COPD: No Diabetes: No GI Disorders: Yes (gerd) HTN: No Seizures: No Thyroid Disease: No - Immunization History Immunization Up to Date: Yes - Suicide/Smoking/Psychosocial Hx Smoking History: Current every day smoker Have you smoked in the past 12 months: No Number of Cigarettes Smoked Daily: 10 Information on smoking cessation initiated: Yes 'Breaking Loose' booklet given: 09/04/18 Hx Alcohol Use: No Drug/Substance Use Hx: No Substance Use Type: None Hx Substance Use Treatment: No Review of Systems - Review of Systems Able to Perform ROS?: Yes Comments:: 09/04/18 15:44 CONSTITUTIONAL: Absent: fever, chills, diaphoresis, generalized weakness, malaise, loss of appetite HEENT: Present: sore throat, difficulty swallowing Absent: rhinorrhea, nasal congestion , throat pain, mouth swelling, ear pain, eye pain, visual Changes CARDIOVASCULAR: Absent: chest pain, loss of consciousness, palpitations, irregular heart rate, peripheral edema RESPIRATORY: Absent: cough, shortness of breath, dyspnea with exertion, orthopnea, wheezing, stridor, hemoptysis GASTROINTESTINAL: Absent: abdominal pain, abdominal distension, nausea, vomiting, diarrhea, constipation, melena, hematochezia GENITOURINARY: Absent: dysuria, frequency, urgency, hesitancy, hematuria, flank pain, genital pain MUSCULOSKELETAL: Absent: myalgia, arthralgia, joint swelling SKIN: Absent: rash, itching, pallor HEMATOLOGIC/IMMUNOLOGIC: Absent: easy bleeding, easy bruising, lymphadenopathy, frequent infections ENDOCRINE: Absent: unexplained weight gain, unexplained weight loss, heat intolerance, cold intolerance NEUROLOGIC: Absent: headache, focal weakness or paresthesias, dizziness, unsteady gait, seizure, mental status changes, bladder or bowel incontinence PSYCHIATRIC: Absent: anxiety, depression, suicidal or homicidal ideation, hallucinations. Is the patient limited Czech proficient: No *Physical Exam - Vital Signs Last Vital Signs Temp Pulse Resp BP Pulse Ox 98.6 F 88 18 129/82 100 09/04/18 15:26 09/04/18 15:26 09/04/18 15:26 09/04/18 15:26 09/04/18 15:26 - Physical Exam Comments: 09/04/18 15:44 GENERAL: Well developed, well nourished. Awake and alert. No acute distress. HEENT: Normocephalic, atraumatic. PERRLA, EOMI. No conjunctival pallor. Sclera are non- icteric. Moist mucous membranes. Oropharynx is clear. NECK: Supple. Full ROM. No JVD. Carotid pulses 2+ and symmetric, without bruits. No thyromegaly. No lymphadenopathy. CARDIOVASCULAR: Regular rate and rhythm. No murmurs, rubs, or gallops. Distal pulses are 2+ and symmetric. PULMONARY: No evidence of respiratory distress. Lungs clear to auscultation bilaterally. No wheezing, rales or rhonchi. EXTREMITIES: No cyanosis. No clubbing. No edema. No calf tenderness. SKIN: Warm and dry. Normal capillary refill. No rashes. No jaundice. NEUROLOGICAL: Alert, awake, appropriate. Cranial nerves 2-12 intact. No deficits to light touch and temperature in face, upper extremities and lower extremities. No motor deficits in the in face, upper extremities and lower extremities. Normoreflexic in the upper and lower extremities. Normal speech. Toes are down- going bilaterally. Gait is normal without ataxia. PSYCHIATRIC: Cooperative. Good eye contact. Appropriate mood and affect. *DC/Admit/Observation/Transfer Diagnosis at time of Disposition: Croup - Discharge Dispostion Disposition: HOME Condition at time of disposition: Stable Decision to Admit order: No - Prescriptions Prescriptions: Ibuprofen 800 mg PO TID #30 tablet Ondansetron [Zofran Odt -] 4 mg SL TID #10 od.tablet predniSONE ORAL SOLUTION [Deltasone Oral Solution 5 MG/5 ML -] 40 mg PO DAILY # 160 ml - Referrals Referrals: Lloyd Stanford MD [Primary Care Provider] - Pradip Mccurdy MD [Staff Physician] - - Patient Instructions Printed Discharge Instructions: DI for Croup Additional Instructions: You have croup Take the prednisone as prescribed for the next 4 days to help alleviate your symptoms If you get nauseous, take the zofran. You may take one pill every 8 hours as needed Cool air may help relax the airway as well Follow up with ENT on Thursday Return to the ED for increased difficulty breathing, shortness of breath, fevers , or if you have any changes in your symptoms. - Post Discharge Activity Forms/Work/School Notes: Back to Work
[2018-09-04] MEDS ORDERED: DEXAMETHASONE LIQUID 0.5 MG/5 ML 240 ML BULK BOTTLE PO ONE (16:21)
[2018-09-04] MEDS ORDERED: DEXAMETHASONE SOD PHOSPHATE 4 MG/1 ML VIAL ONE (16:23)
== END 2018-09-04 17:18 | disposition home or self-care (01) ==
LOC: JERFT 15:15
DX: J05.0 Acute obstructive laryngitis [croup] (principal); J45.909 Unspecified asthma, uncomplicated; K21.9 Gastro-esophageal reflux disease without esophagitis
CPT/HCPCS: 70360-TC-FY; 87070; 87430; 99281-25

== ENCOUNTER → 2019-01-14 | Day surgery (SDC) | payer OTHER ==
[2019-01-13 08:45] VITALS: BMI 34.2
[~2019-01-14] MED LIST: KETOROLAC TROMETHAMINE 30 MG/1 ML VIAL ONE; LACTATED RINGERS SOLUTION 1,000 ML IV SCH; MIDAZOLAM HCL 2 MG/2 ML SINGLE DOSE VIAL ONE; ONDANSETRON 4 MG/2 ML VIAL IVPUSH PRN; PROPOFOL 20 ML ONE; RHO(D) IMMUNE GLOBULIN 1,500 UNIT DISP.SYRIN IM ONE; ceFAZolin SODIUM 1 GM VIAL IVPB ONE; ceFAZolin SODIUM 1 GM VIAL ONE; oxyCODONE HCL 5 MG TABLET PO PRN
--- NOTE | 2019-01-14 10:10 | HP ---
History & Physical Update - History History: No Change (Missed Ab) - Physical Physical: No Change - Assessment Assessment: No Change - Plan Plan: No Change Currently as noted:: Surgical Tx of missed Ab, suction/D&C
--- NOTE | 2019-01-14 10:53 | OP ---
Operative Note - Note: Operative Date: 01/14/19 Pre-Operative Diagnosis: Missed Ab Operation: Suction/D&C, surgical Tx of Missed Ab Findings: Small AV uterus, POC on suction curettage, no RPOC at end of procedure Post-Operative Diagnosis: Same as Pre-op Surgeon: Nikolay Garcia Anesthesiologist/FURNACE AND WASH EQUIPMENT OPERATOR: Costa Rojas Anesthesia: General Specimens Removed: POC Estimated Blood Loss (mls): 30 Blood Volume Replaced (mls): 0 Fluid Volume Replaced (mls): 400 Operative Report Dictated: Yes
--- NOTE | 2019-01-14 11:48 | OP ---
DATE OF OPERATION: 01/14/2019 PREOPERATIVE DIAGNOSIS: Missed at 6-7 weeks of estimated gestational age. POSTOPERATIVE DIAGNOSIS: Missed at 6-7 weeks of estimated gestational age. PROCEDURE: Surgical treatment of missed (suction dilatation and curettage under 14 weeks). SURGEON: Dalila Evans MD ANESTHESIOLOGIST: Costa Rojas MD ANESTHESIA: General. COMPLICATIONS: None. ESTIMATED BLOOD LOSS: 30 mL. INTRAVENOUS FLUIDS: 400 mL. PATHOLOGY: Products of conception. FINDINGS: Examination under anesthesia revealed a small anteverted uterus with no pelvic or adnexal masses. The uterus is freely mobile within the pelvis. Products of conception were noted on suction curettage. No retained products of conception were noted at the end of the procedure. No complications. PROCEDURE: The patient was met preoperatively. The risks, benefits, and alternatives of surgery were discussed in detail. All questions were answered. The patient reviewed the consent form. She asked appropriate questions that were answered, and the patient signed the consent form. The patient was then brought to the OR with the IV running. She was placed on the surgical table in the supine position. The general anesthesia was achieved without difficulty. The patient was then placed in a dorsal lithotomy position using adjustable Demond stirrups. She was examined under anesthesia with the findings as described above. The timeout procedure was conducted as per standard protocol. The patient was then prepped and draped in the usual sterile fashion. A sterile speculum was introduced inside the vagina with good visualization of the cervix. The cervix was grasped with a single-toothed tenaculum. The cervical os was dilated to accommodate size 23-Mayo dilator. A suction curette was then introduced into the uterine cavity. The products of conception were evacuated using a suction curettage. No retained tissue was noted at the end of the procedure. The instruments were removed from the patient. Sponge, lap, and instrument counts were correct. Good hemostasis was confirmed. The patient was returned to supine position. She was then transferred to recovery room in stable condition and awake. DALILA EVANS M.D. [id number]
[2019-01-14 12:53] VITALS: BP 116/75; PULSE 73; TEMP 98
--- NOTE | 2019-01-18 16:23 | PATH ---
Surgical Pathology Report Patient Name: DERRELL GERARDO Med. Rec. #: [id number] /Age/Gender: 1990 (Age: 28) / F Account: [id number] Location: [facility] SURGICAL Taken: 01/14/2019 Received: 01/14/2019 Reported: 01/18/2019 Physicians: Nikolay Garcia M.D. Specimen(s) Received PRODUCTS OF CONCEPTION Clinical History Missed Final Diagnosis PRODUCTS OF CONCEPTION, DILATION AND CURETTAGE: CHORIONIC VILLI PRESENT, CONSISTENT WITH PRODUCTS OF CONCEPTION. Electronically Signed Stella Stovall M.D. Gross Description Received in formalin labeled "products of conception," is an 11.0 x 10.0 x 1.2 cm aggregate of watts-brown soft tissue fragments admixed with blood clot. Villous tissue is identified. No definite somatic tissue is identified. A marketing representative portion is submitted in one cassette. /01/17/2019 saudi01/17/2019
== END | disposition home or self-care (01) ==
LOC: JASU-SURG 04:59
PROVIDERS: ATTEND Obstetrics & Gynecology
PROC: 10D17ZZ Extraction of Products of Conception, Retained, Via Natural or Artificial Opening (ICD-10-PCS; principal; 2019-01-14 10:00)
DX: O02.1 Missed abortion (principal); Z3A.01 Less than 8 weeks gestation of pregnancy
CPT/HCPCS: 86999; 88305-TC; 94760; J1561

== ENCOUNTER 2019-05-01 03:40 | Emergency (ER) | payer OTHER ==
[2019-05-01 03:49] VITALS: BP 130/85; PULSE 93; TEMP 97.9; BMI 30.5
[2019-05-01] MEDS ORDERED: IBUPROFEN 100 MG/5 ML UNIT DOSE CUPS PO ONE (03:56)
[2019-05-01] MEDS ORDERED: IBUPROFEN 100 MG/5 ML UNIT DOSE CUPS ONE (04:02)
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
== END 2019-05-01 04:34 | disposition home or self-care (01) ==
LOC: JER 03:40
DX: S63.501A Unspecified sprain of right wrist, initial encounter (principal); Y04.0XXA Assault by unarmed brawl or fight, initial encounter; Y93.89 Activity, other specified; Y92.89 Other specified places as the place of occurrence of the external cause; Y99.8 Other external cause status; Y07.9 Unspecified perpetrator of maltreatment and neglect
CPT/HCPCS: 73110-TC-RT-FY; 73130-TC-RT-FY; 99282-25

== ENCOUNTER 2019-08-02 18:57 | Emergency (ER) | payer OTHER ==
--- NOTE | 2019-08-02 18:59 | PDOC ---
Rapid Medical Evaluation Time Seen by Provider: 08/02/19 18:58 Medical Evaluation: Allergies Allergy/AdvReac Type Severity Reaction Status Date / Time No Known Allergies Allergy Verified 05/01/19 03:45 08/02/19 18:58 HPI: Abdominal pain s/p 07/27/19 PE: No gross deficits ORDERS: Labs US Discharge Disposition - Diagnosis Abdominal pain - Referrals - Patient Instructions - Post Discharge Activity
[2019-08-02 19:01] VITALS: BP 139/85; PULSE 86; TEMP 97.8; BMI 32.1
[2019-08-02 21:16] LABS: BASO % 0.8 % (0-2.0); EOS % 1.9 % (0-4.5); HEMATOCRIT 36.8 % (32.4-45.2); HEMOGLOBIN 12.2 GM/dL (10.7-15.3); LYMPH % 31.9 % (8-40); MEAN CELL VOLUME 90.9 fl (80-96); MEAN PLT VOLUME 9.2 fl (7.5-11.1); MONO % 8.4 % (3.8-10.2); PLATELET COUNT 326 K/MM3 (134-434); RBC 4.05 M/mm3 (3.60-5.2); RDW 14.6 % (11.6-15.6); WHITE BLOOD COUNT 9.7 K/mm3 (4.0-10.0)
[2019-08-02 21:26] LABS: PROTHROMBIN TIME (PATIENT) 11.8 SEC (9.7-13.0)
[2019-08-02 21:52] LABS: EPI CELLS 9.4 /HPF (0-5/HPF); HYALINE CASTS 127 /lpf (0-8); PH,URINE 5.5 (5.0-8.0); URINE APPEARANCE CLOUDY; URINE BACTERIA 138.4 /hpf (NEGATIVE); URINE BILIRUBIN NEGATIVE (NEGATIVE); URINE COLOR DK YELLOW; URINE GLUCOSE (UA) NEGATIVE (NEGATIVE); URINE KETONE TRACE (NEGATIVE); URINE LEUK ESTERASE 1+ (NEGATIVE); URINE NITRITE NEGATIVE (NEGATIVE); URINE PROTEIN 2+ (NEGATIVE); URINE RBC 5 /hpf (0-4); URINE UROBILINOGEN 0.2 mg/dL (0.2-1.0); URINE WBC 141 /hpf (0-5)
[2019-08-02] MEDS ORDERED: PHENAZOPYRIDINE HCL 100 MG TABLET (FP) PO ONE (22:31)
[2019-08-02] MEDS ORDERED: CEPHALEXIN MONOHYDRATE 500 MG CAPSULE (UD) PO STA (22:32)
--- NOTE | 2019-08-02 22:40 | PDOC ---
Documentation entered by Fe Wu SCRIBE, acting as scribe for Molly Richards MD. Molly Richards MD: This documentation has been prepared by the Bryce pena Sammi, SCRIBE, under my direction and personally reviewed by me in its entirety. I confirm that the documentation accurately reflects all work, treatment, procedures, and medical decision making performed by me. History of Present Illness - General Chief Complaint: Pain Stated Complaint: PAIN Time Seen by Provider: 08/02/19 18:58 - History of Present Illness Initial Comments: 08/02/19 21:16 The patient is a 28 year old female who presents to the emergency department for evaluation of a sharp suprapubic abdominal pain and vaginal bleeding with associated cramping s/p D/C 07/27/19 at [facility]. The patient states she was 11 weeks at the time. She notes taking motrin intermittently with some relief. Medical history: Asthma, IBS Surgical history: D/C, lumbar dissection in 2018 Past History - Past Medical History Allergies/Adverse Reactions: Allergies Allergy/AdvReac Type Severity Reaction Status Date / Time No Known Allergies Allergy Verified 08/02/19 19:01 Home Medications: Ambulatory Orders Esomeprazole Magnesium [Nexium 24Hr] 40 mg PO DAILY 05/01/19 Cephalexin [Keflex *Suspension*] 10 ml PO BID 7 Days #1 bottle 08/02/19 Sulfamethoxazole/Trimethoprim [Bactrim Ds -] 1 tab PO BID #14 tablet 08/02/19 Anemia: No Asthma: Yes Cancer: No Cardiac Disorders: No CVA: No COPD: No CHF: No Dementia: No Diabetes: No GI Disorders: Yes (gerd, IBS) Disorders: No HTN: No Hypercholesterolemia: No Liver Disease: No Seizures: No Thyroid Disease: No - Surgical History Abdominal Surgery: No Appendectomy: No Cardiac Surgery: No Cholecystectomy: No Lung Surgery: No Neurologic Surgery: No Orthopedic Surgery: Yes (LUMBAR-DISECTOMY 2018) - Immunization History Immunization Up to Date: Yes - Suicide/Smoking/Psychosocial Hx Smoking History: Current every day smoker Have you smoked in the past 12 months: No Number of Cigarettes Smoked Daily: 10 Information on smoking cessation initiated: No 'Breaking Loose' booklet given: 01/14/19 Hx Alcohol Use: No Drug/Substance Use Hx: No Substance Use Type: None Hx Substance Use Treatment: No Review of Systems - Review of Systems Comments:: 08/02/19 21:19 CONSTITUTIONAL: Absent: fever, no chills, no fatigue EYES: Absent: visual changes ENT: Absent: ear pain, no sore throat CARDIOVASCULAR: Absent: chest pain, no palpitations RESPIRATORY: Absent: cough, no SOB GI: (+)abdominal pain & cramps Absent: no nausea, no vomiting, no constipation, no diarrhea GENITOURINARY: (+)vaginal bleeding Absent: dysuria, no frequency, no hematuria MUSKULOSKELETAL: Absent: back pain, no arthralgia, no myalgia SKIN: Absent: rash NEURO: Absent: headache *Physical Exam - Vital Signs Last Vital Signs Temp Pulse Resp BP Pulse Ox 97.8 F 86 18 139/85 98 08/02/19 18:58 08/02/19 18:58 08/02/19 18:58 08/02/19 18:58 08/02/19 18:58 - Physical Exam Comments: 08/02/19 22:23 GENERAL: Well-appearing, well-nourished. No apparent distress. HEENT: Normocephalic, atraumatic. PERRL, EOM intact. CARDIOVASCULAR: Normal S1, S2. Regular rate and rhythm. PULMONARY: Clear to auscultation bilaterally. ABDOMEN: Soft, non-distended, non-tender. EXTREMITIES: Normal ROM in all four extremities. No gross deformities. SKIN: Warm, dry. No rash NEUROLOGICAL: No focal neurological deficits. ED Treatment Course - LABORATORY CBC & Chemistry Diagram: 08/02/19 21:02 - ADDITIONAL ORDERS Additional order review: Laboratory Results 08/02/19 08/02/19 08/02/19 21:32 21:02 21:02 PT with INR INR Beta HCG, Quant 453.5 Urine Color Dk yellow Urine Appearance Cloudy Urine pH 5.5 Ur Specific [place] 1.037 H Urine Protein 2+ H Urine Glucose (UA) Negative Urine Ketones Trace H Urine Blood 3+ H Urine Nitrite Negative Urine Bilirubin Negative Urine Urobilinogen 0.2 Ur Leukocyte Esterase 1+ H Urine WBC (Auto) 141 Urine RBC (Auto) 5 Urine Casts (Auto) 127 U Epithel Cells (Auto) 9.4 Urine Bacteria (Auto) 138.4 Blood Type O NEGATIVE Antibody Screen Positive 08/02/19 21:02 PT with INR 11.80 INR 1.00 Beta HCG, Quant Urine Color Urine Appearance Urine pH Ur Specific [place] Urine Protein Urine Glucose (UA) Urine Ketones Urine Blood Urine Nitrite Urine Bilirubin Urine Urobilinogen Ur Leukocyte Esterase Urine WBC (Auto) Urine RBC (Auto) Urine Casts (Auto) U Epithel Cells (Auto) Urine Bacteria (Auto) Blood Type Antibody Screen 08/02/19 21:02 RBC 4.05 MCV 90.9 MCHC 33.0 RDW 14.6 MPV 9.2 Neutrophils % 57.0 Lymphocytes % 31.9 D Monocytes % 8.4 Eosinophils % 1.9 Basophils % 0.8 Medical Decision Making - Medical Decision Making 08/02/19 22:38 pelvic US no retained products of conception seen pt stated she already had rhogam for this UA positive for UTI and she requested suspension since she could swallow pills *DC/Admit/Observation/Transfer Diagnosis at time of Disposition: Pain, female pelvic UTI (urinary tract infection) Qualifiers: Urinary tract infection type: site unspecified Hematuria presence: without hematuria Qualified Code(s): N39.0 - Urinary tract infection, site not specified - Discharge Dispostion Disposition: HOME Condition at time of disposition: Stable - Prescriptions Prescriptions: Cephalexin [Keflex *Suspension*] 10 ml PO BID 7 Days #1 bottle - Referrals Referrals: Lloyd Stanford MD [Primary Care Provider] - - Patient Instructions Printed Discharge Instructions: DI for Urinary Tract Infection (UTI) Additional Instructions: please lemon picker your antibiotics at your pharmacy - Post Discharge Activity
== END 2019-08-02 22:49 | disposition home or self-care (01) ==
LOC: JER 18:57
DX: N39.0 Urinary tract infection, site not specified (principal); R10.2 Pelvic and perineal pain; Z98.890 Other specified postprocedural states; J45.909 Unspecified asthma, uncomplicated; K21.9 Gastro-esophageal reflux disease without esophagitis; F17.210 Nicotine dependence, cigarettes, uncomplicated
CPT/HCPCS: 36415; 76817-TC; 81003; 84702; 85025; 85610; 86850; 86870; 86900; 86901; 86902; 99282-25

== ENCOUNTER 2019-08-19 10:45 | Emergency (ER) | payer OTHER ==
[2019-08-19 11:01] VITALS: BP 127/67; PULSE 85; TEMP 98.4; BMI 32.1
[2019-08-19] MEDS ORDERED: DEXAMETHASONE LIQUID 0.5 MG/5 ML PO ONE (11:17)
[2019-08-19] MEDS ORDERED: DEXAMETHASONE SOD PHOSPHATE 10 MG/1 ML VIAL ONE (11:18)
--- NOTE | 2019-08-19 11:24 | PDOC ---
History of Present Illness - General Chief Complaint: Sore Throat Stated Complaint: TIGHT THROAT Time Seen by Provider: 08/19/19 11:06 History Source: Patient Exam Limitations: Clinical Condition - History of Present Illness Initial Comments: 08/19/19 11:21 Patient with past medical history of asthma and GERD presented with complaint of 2-day history of sore throat, swollen tonsils and painful to swallow. Denies fever, chills, cough, nausea or vomiting. Patient also reported nasal congestion. Denies any other symptoms Is this a multiple visit Asthma Patient?: No Timing/Duration: other (2 days) Past History - Past Medical History Allergies/Adverse Reactions: Allergies Allergy/AdvReac Type Severity Reaction Status Date / Time No Known Allergies Allergy Verified 08/19/19 10:58 Home Medications: Ambulatory Orders Esomeprazole Magnesium [Nexium 24Hr] 40 mg PO DAILY 05/01/19 Cephalexin [Keflex *Suspension*] 10 ml PO BID 7 Days #1 bottle 08/02/19 Sulfamethoxazole/Trimethoprim [Bactrim Ds -] 1 tab PO BID #14 tablet 08/02/19 Ipratropium [place] 2 spray NS BID PRN #1 spray 08/19/19 Prednisolone 10 ml PO BID 4 Days #80 ml 08/19/19 Anemia: No Asthma: Yes Cancer: No Cardiac Disorders: No CVA: No COPD: No CHF: No Dementia: No Diabetes: No GI Disorders: Yes (gerd, IBS) Disorders: No HTN: No Hypercholesterolemia: No Liver Disease: No Seizures: No Thyroid Disease: No - Surgical History Abdominal Surgery: No Appendectomy: No Cardiac Surgery: No Cholecystectomy: No Lung Surgery: No Neurologic Surgery: No Orthopedic Surgery: Yes (LUMBAR-DISECTOMY 2017) - Reproductive History Therapeutic (s) & number: Yes (07/27) - Immunization History Immunization Up to Date: Yes - Psycho Social/Smoking Cessation Hx Smoking History: Never smoked Have you smoked in the past 12 months: No Number of Cigarettes Smoked Daily: 10 'Breaking Loose' booklet given: 01/14/19 Hx Alcohol Use: No Drug/Substance Use Hx: No Substance Use Type: None Hx Substance Use Treatment: No Review of Systems - Review of Systems Able to Perform ROS?: Yes Is the patient limited [place] proficient: No Constitutional: No: Chills, Fever HEENTM: Yes: Symptoms Reported, See HPI, Nose Congestion, Throat Pain, Difficulty Swallowing. No: Eye Pain, Blurred Vision, Tearing, Recent change in vision, Double Vision, Cataracts, Ear Pain, Ocular Prothesis, Ear Discharge, Nose Pain, Tinnitus, Nose Bleeding, Hearing Loss, Throat Swelling, Mouth Pain, Dental Problems, Mouth Swelling, Other Respiratory: No: Symptoms reported, See HPI, Cough, Orthopnea, Shortness of Breath, SOB with Exertion, SOB at Rest, Stridor, Wheezing, Productive cough, Hemoptysis, Other Cardiac (ROS): No: Symptoms Reported, See HPI, Chest Pain, Edema, Irregular Heart Rate, Lightheadedness, Palpitations, Syncope, Chest Tightness, Other ABD/GI: No: Symptoms Reported, Nausea, Vomiting : No: Symptoms Reported Integumentary: No: Symptoms Reported, Rash All Other Systems: Reviewed and Negative *Physical Exam - Vital Signs Last Vital Signs Temp Pulse Resp BP Pulse Ox 98.4 F 85 17 127/67 100 08/19/19 10:58 08/19/19 10:58 08/19/19 10:58 08/19/19 10:58 08/19/19 10:58 - Physical Exam Comments: 08/19/19 11:23 GENERAL: Well developed, well nourished. Awake and alert. No acute distress. HEENT: Moderately enlarged bilateral non-erythematous tonsils. Normocephalic, atraumatic. PERRLA, EOMI. No conjunctival pallor. Sclera are non-icteric. Moist mucous membranes. Oropharynx is clear. NECK: Supple. Full ROM. CARDIOVASCULAR: Regular rate and rhythm. No murmurs, rubs, or gallops. PULMONARY: No evidence of respiratory distress. Lungs clear to auscultation bilaterally. No wheezing, rales or rhonchi. ABDOMINAL: Soft. Non-tender. Non-distended. No rebound or guarding. No organomegaly. Normoactive bowel sounds. MUSCULOSKELETAL Normal range of motion at all joints. SKIN: Warm and dry. Normal capillary refill. No rashes. NEUROLOGICAL: Alert, awake, appropriate. Gait is normal without ataxia. PSYCHIATRIC: Cooperative. Good eye contact. Appropriate mood General Appearance: Yes: Nourished, Appropriately Dressed. No: Apparent Distress Medical Decision Making - Medical Decision Making 08/19/19 11:22 Patient with past medical history of asthma and GERD presented with complaint of 2-day history of sore throat, swollen tonsils and painful to swallow. Denies fever, chills, cough, nausea or vomiting. Patient also reported nasal congestion. Denies any other symptoms Exam significant for non-erythematous enlarged bilateral tonsils with bilateral nasal congestion otherwise normal exam. Normal cardio and lungs exam. Symptoms likely viral pharyngitis with nasal congestion versus strep pharyngitis with tonsillitis. Rapid strep ordered to rule her strep pharyngitis. Decadron 10 mg p.o. ordered for throat pain 08/19/19 11:54 Rapid strep negative. Patient symptoms likely viral pharyngitis with tonsillitis. Patient stable for outpatient management of p.o. steroids to help with tonsillitis and Atrovent nasal spray for nasal congestion with ENT follow- up. Patient advised to gargle with salt water as needed for throat pain. Patient reported has her own ENT that she will follow-up with. Patient stable for discharge Discharge - Discharge Information Problems reviewed: Yes Clinical Impression/Diagnosis: Tonsillitis, Nasal congestion Pharyngitis, acute Qualifiers: Pharyngitis/tonsillitis etiology: unspecified etiology Qualified Code(s): J02.9 - Acute pharyngitis, unspecified Condition: Stable Disposition: HOME - Admission No - Additional Discharge Information Prescriptions: Ipratropium [place] 2 spray NS BID PRN #1 spray PRN Reason: nasal congestion Prednisolone 10 ml PO BID 4 Days #80 ml - Follow up/Referral Referrals: Lloyd Stanford MD [Primary Care Provider] - - Patient Discharge Instructions Patient Printed Discharge Instructions: DI for Pharyngitis/Tonsillopharyngitis -- Adult Additional Instructions: strep test is negative. Symptoms likely caused by viral infection. Take prescribed medication as prescribed. Gargle with salt water as needed to help with throat pain. Follow-up referred ENT if symptoms persist for more than 4 days - Post Discharge Activity
== END 2019-08-19 12:02 | disposition home or self-care (01) ==
LOC: JERFT 10:45
DX: J03.90 Acute tonsillitis, unspecified (principal); J45.909 Unspecified asthma, uncomplicated; K21.9 Gastro-esophageal reflux disease without esophagitis
CPT/HCPCS: 87070; 87880; 99282-25

== ENCOUNTER 2019-12-19 16:49 | Emergency (ER) | payer OTHER ==
[2019-12-19 17:02] VITALS: BP 123/72; PULSE 92; TEMP 98.6; BMI 36.0
[2019-12-19] MEDS ORDERED: ONDANSETRON 4 MG/2 ML VIAL IVPUSH ONE (18:41)
[2019-12-19] MEDS ORDERED: ACETAMINOPHEN 1000 MG/100 ML VIAL (NON FORMULARY) IVPB ONE (18:41)
[2019-12-19] MEDS ORDERED: SODIUM CHLORIDE 1,000 ML IV STA (18:41)
--- NOTE | 2019-12-19 18:54 | PDOC ---
Rapid Medical Evaluation Chief Complaint: Pain Time Seen by Provider: 12/19/19 18:50 Medical Evaluation: Allergies Allergy/AdvReac Type Severity Reaction Status Date / Time No Known Allergies Allergy Verified 12/19/19 16:58 Vital Signs Temp Pulse Resp BP Pulse Ox 98.6 F 92 H 16 123/72 100 12/19/19 16:58 12/19/19 16:58 12/19/19 16:58 12/19/19 16:58 12/19/19 16:58 12/19/19 18:50 Patient is a 28-year-old female who presents to the ER today for lower abdominal pain for 2 days. She states that she has pain with bowel movements. She states that the pain is sharp and mostly in the right lower quadrant. She has a history of irritable bowel syndrome. No abdominal surgeries. Exam tenderness to palpation of the right lower quadrant without rebound or guarding. The pain extends into the adnexa. Orders: Basic labs, urine, IV, Zofran Patient to proceed to vertical for further evaluation. Discharge Disposition - Diagnosis Abdominal pain - Discharge Dispostion Last Admission D/C Date: 02/17/13 - Referrals Referrals: Lloyd Stanford MD [Primary Care Provider] - - Patient Instructions - Post Discharge Activity
[2019-12-19] MEDS ORDERED: ACETAMINOPHEN INJECTION 100 ML IVPB ONE (19:35)
[2019-12-19] MEDS ORDERED: ONDANSETRON 4 MG/2 ML VIAL ONE (19:35)
--- NOTE | 2019-12-19 19:45 | PDOC ---
History of Present Illness - General Chief Complaint: Pain Stated Complaint: ABD PAIN Time Seen by Provider: 12/19/19 18:50 History Source: Patient - History of Present Illness Initial Comments: 12/19/19 19:44 28 year old female c/o right sided pelvic pain and constipation x 2 days. denies fever/ chills, vomiting. + nausea. denies urinary symptoms. Past History - Past Medical History Allergies/Adverse Reactions: Allergies Allergy/AdvReac Type Severity Reaction Status Date / Time No Known Allergies Allergy Verified 12/19/19 16:58 Home Medications: Ambulatory Orders Esomeprazole Magnesium [Nexium 24Hr] 40 mg PO DAILY 05/01/19 Cephalexin [Keflex *Suspension*] 10 ml PO BID 7 Days #1 bottle 08/02/19 Sulfamethoxazole/Trimethoprim [Bactrim Ds -] 1 tab PO BID #14 tablet 08/02/19 Ipratropium [place] 2 spray NS BID PRN #1 spray 08/19/19 Prednisolone 10 ml PO BID 4 Days #80 ml 08/19/19 Cephalexin [Keflex Oral Suspension -] 500 mg PO BID #200 ml 12/19/19 Polyethylene Glycol 3350 [Miralax (For Daily Use) -] 17 gm PO ONCE #1 bottle 08/28 Anemia: No Asthma: Yes Cancer: No Cardiac Disorders: No CVA: No COPD: No CHF: No Dementia: No Diabetes: No GI Disorders: Yes (gerd, IBS) Disorders: No HTN: No Hypercholesterolemia: No Liver Disease: No Seizures: No Thyroid Disease: No - Surgical History Abdominal Surgery: No Appendectomy: No Cardiac Surgery: No Cholecystectomy: No Lung Surgery: No Neurologic Surgery: No Orthopedic Surgery: Yes (LUMBAR-DISECTOMY 2017) - Reproductive History Therapeutic (s) & number: Yes (07/27) - Immunization History Immunization Up to Date: Yes - Psycho Social/Smoking Cessation Hx Smoking History: Never smoked Have you smoked in the past 12 months: No Number of Cigarettes Smoked Daily: 10 Information on smoking cessation initiated: No 'Breaking Loose' booklet given: 01/14/19 Hx Alcohol Use: No Drug/Substance Use Hx: No Substance Use Type: None Hx Substance Use Treatment: No Review of Systems - Review of Systems Able to Perform ROS?: Yes Is the patient limited [place] proficient: No Constitutional: No: Symptoms Reported, See HPI, Chills, Diaphoresis, Fever, Loss of Appetite, Malaise, Night Sweats, Weakness, Weight Stable, Unintentional Wgt. Loss, Unexplained wgt Loss, Other ABD/GI: Yes: Constipated, Nausea, Abdominal cramping : No: Symptoms Reported, See HPI, Burning, Dysuria, Discharge, Frequency, Flank Pain, Hematuria, Incontinence, Pain, Urgency, Testicular Mass, Testicular Swelling, Lesions, Testicular Pain, Other *Physical Exam - Vital Signs Last Vital Signs Temp Pulse Resp BP Pulse Ox 98.6 F 92 H 16 123/72 100 12/19/19 16:58 12/19/19 16:58 12/19/19 16:58 12/19/19 16:58 12/19/19 16:58 - Physical Exam General Appearance: Yes: Appropriately Dressed Respiratory/Chest: positive: Lungs Clear, Normal Breath Sounds Cardiovascular: positive: Regular Rhythm, Regular Rate Female Pelvic Exam: positive: normal external exam, adnexal tenderness (right adenexal tenderness, ), other (white vaginal discharge) Gastrointestinal/Abdominal: positive: Normal Bowel Sounds, Soft. negative: Tender (no RLQ / periumbilical pain) ED Treatment Course - LABORATORY CBC & Chemistry Diagram: 12/19/19 20:00 12/19/19 20:00 - Medications Given in the ED: ED Medications Discontinued Medications Generic Name Dose Route Start Last Admin Trade Name Ernestoq PRN Reason Stop Dose Admin Acetaminophen 1,000 mg 12/19/19 18:41 12/19/19 19:41 Ofirmev Injection - IVPB 12/19/19 18:42 1,000 mg ONCE ONE Administration Sodium Chloride 1,000 mls @ 1,000 mls/hr 12/19/19 18:41 12/19/19 19:41 Normal Saline - IV 12/19/19 19:40 1,000 mls/hr ASDIR STA Administration Ondansetron HCl 4 mg 12/19/19 18:41 12/19/19 19:41 Zofran Injection IVPUSH 12/19/19 18:42 4 mg ONCE ONE Administration ED Progress Note - Progress Note Progress Note: 12/19/19 19:45 A: abdominal pain; constipation P: cbc cmp Transvaginal US + right ovarian cyst Ua Discharge - Discharge Information Problems reviewed: Yes Clinical Impression/Diagnosis: Right ovarian cyst Abdominal pain Qualifiers: Abdominal location: lower abdomen, unspecified Qualified Code(s): R10.30 - Lower abdominal pain, unspecified UTI (urinary tract infection) Qualifiers: Urinary tract infection type: acute cystitis Hematuria presence: without hematuria Qualified Code(s): N30.00 - Acute cystitis without hematuria Disposition: HOME - Additional Discharge Information Prescriptions: Cephalexin [Keflex Oral Suspension -] 500 mg PO BID #200 ml Polyethylene Glycol 3350 [Miralax (For Daily Use) -] 17 gm PO ONCE #1 bottle - Follow up/Referral Referrals: Lloyd Stanford MD [Primary Care Provider] - - Patient Discharge Instructions Patient Printed Discharge Instructions: Urinary Tract Infection Additional Instructions: Drink plenty of fluids Take ibuprofen every 6 hours as needed for pain Take cephalexin as prescribed Take miralax as prescribed Follow-up with your primary care doctor as soon as possible. You need to repeat urine test once your antibiotic is completed. We will call you if you're antibiotic needs to be changed. - Post Discharge Activity Work/Back to School Note: Back to Work
[2019-12-19 19:46] LABS: EPI CELLS 12.3 /HPF (0-5/HPF); HYALINE CASTS 4 /lpf (0-8); PH,URINE 6.5 (5.0-8.0); URINE APPEARANCE CLEAR; URINE BACTERIA 1027.3 /hpf (NEGATIVE); URINE BILIRUBIN NEGATIVE (NEGATIVE); URINE COLOR YELLOW; URINE GLUCOSE (UA) NEGATIVE (NEGATIVE); URINE KETONE NEGATIVE (NEGATIVE); URINE LEUK ESTERASE TRACE (NEGATIVE); URINE NITRITE NEGATIVE (NEGATIVE); URINE PROTEIN NEGATIVE (NEGATIVE); URINE RBC 1 /hpf (0-4); URINE WBC 17 /hpf (0-5)
--- NOTE | 2019-12-19 20:02 | PDOC ---
*Physical Exam - Vital Signs Last Vital Signs Temp Pulse Resp BP Pulse Ox 98.6 F 92 H 16 123/72 100 12/19/19 16:58 12/19/19 16:58 12/19/19 16:58 12/19/19 16:58 12/19/19 16:58 ED Treatment Course - LABORATORY CBC & Chemistry Diagram: 12/19/19 20:00 12/19/19 20:00 - ADDITIONAL ORDERS Additional order review: Laboratory Results 12/19/19 12/19/19 18:50 18:50 Urine Color Yellow Urine Appearance Clear Urine pH 6.5 Ur Specific [place] 1.014 Urine Protein Negative Urine Glucose (UA) Negative Urine Ketones Negative Urine Blood Negative Urine Nitrite Negative Urine Bilirubin Negative Urine Urobilinogen 1.0 Ur Leukocyte Esterase Trace Urine WBC (Auto) 17 Urine RBC (Auto) 1 Urine Casts (Auto) 4 U Epithel Cells (Auto) 12.3 Urine Bacteria (Auto) 1027.3 Urine HCG, Qual Negative - Medications Given in the ED: ED Medications Discontinued Medications Generic Name Dose Route Start Last Admin Trade Name Ernestoq PRN Reason Stop Dose Admin Acetaminophen 1,000 mg 12/19/19 18:41 12/19/19 19:41 Ofirmev Injection - IVPB 12/19/19 18:42 1,000 mg ONCE ONE Administration Sodium Chloride 1,000 mls @ 1,000 mls/hr 12/19/19 18:41 12/19/19 19:41 Normal Saline - IV 12/19/19 19:40 1,000 mls/hr ASDIR STA Administration Ondansetron HCl 4 mg 12/19/19 18:41 12/19/19 19:41 Zofran Injection IVPUSH 12/19/19 18:42 4 mg ONCE ONE Administration Medical Decision Making - Medical Decision Making 12/19/19 20:02 Patient seen by the advanced practice provider under my supervision. Ancillary testing reviewed as necessary. I agree with plan as outlined by the advanced practice provider. Discharge - Discharge Information Problems reviewed: Yes Clinical Impression/Diagnosis: Right ovarian cyst Abdominal pain Qualifiers: Abdominal location: lower abdomen, unspecified Qualified Code(s): R10.30 - Lower abdominal pain, unspecified UTI (urinary tract infection) Qualifiers: Urinary tract infection type: acute cystitis Hematuria presence: without hematuria Qualified Code(s): N30.00 - Acute cystitis without hematuria Disposition: HOME - Additional Discharge Information Prescriptions: Cephalexin [Keflex Oral Suspension -] 500 mg PO BID #200 ml Polyethylene Glycol 3350 [Miralax (For Daily Use) -] 17 gm PO ONCE #1 bottle - Follow up/Referral Referrals: Lloyd Stanford MD [Primary Care Provider] - - Patient Discharge Instructions Patient Printed Discharge Instructions: Urinary Tract Infection Additional Instructions: Drink plenty of fluids Take ibuprofen every 6 hours as needed for pain Take cephalexin as prescribed Take miralax as prescribed Follow-up with your primary care doctor as soon as possible. You need to repeat urine test once your antibiotic is completed. We will call you if you're antibiotic needs to be changed. - Post Discharge Activity Work/Back to School Note: Back to Work
[2019-12-19 21:13] LABS: BASO % 0.2 % (0-2.0); EOS % 1.2 % (0-4.5); HEMATOCRIT 39.3 % (32.4-45.2); HEMOGLOBIN 12.9 GM/dL (10.7-15.3); LYMPH % 36.6 % (8-40); MCH 29.9 pg (25.7-33.7); MCHC 32.9 g/dl (32.0-36.0); MEAN PLT VOLUME 10.9 fl (7.5-11.1); MONO % 10.8 % (3.8-10.2); NEUT % 51.2 % (42.8-82.8); PLATELET COUNT 291 K/MM3 (134-434); RBC 4.31 M/mm3 (3.60-5.2); WHITE BLOOD COUNT 9.6 K/mm3 (4.0-10.0)
[2019-12-19 22:00] LABS: ALBUMIN 4.1 g/dl (3.4-5.0); BILIRUBIN,TOTAL 0.2 mg/dL (0.2-1); BLOOD UREA NITROGEN 10.3 mg/dL (7-18); CREATININE 0.9 mg/dL (0.55-1.3); POTASSIUM 4.1 mmol/L (3.5-5.1)
== END 2019-12-19 23:21 | disposition home or self-care (01) ==
LOC: JER 16:49
PROC: 3E033GC Introduction of Other Therapeutic Substance into Peripheral Vein, Percutaneous Approach (ICD-10-PCS; principal; 2019-12-19)
PROC: 3E033NZ Introduction of Analgesics, Hypnotics, Sedatives into Peripheral Vein, Percutaneous Approach (ICD-10-PCS; 2019-12-19)
DX: N30.00 Acute cystitis without hematuria (principal); N83.201 Unspecified ovarian cyst, right side; J45.909 Unspecified asthma, uncomplicated; K21.9 Gastro-esophageal reflux disease without esophagitis; Z87.19 Personal history of other diseases of the digestive system
CPT/HCPCS: 36415; 76830-TC; 80053; 81003; 82962; 84703; 85025; 87086; 96374; 96375; 99285-25; J0131; J7030

== ENCOUNTER 2020-09-21 16:13 | Emergency (ER) | payer OTHER ==
[2020-09-21 16:36] VITALS: BP 128/71; PULSE 118; TEMP 97.8; BMI 36.9
[2020-09-21 20:02] LABS: BASO % 0.2 % (0-2.0); HEMATOCRIT 31.8 % (32.4-45.2); HEMOGLOBIN 10.4 GM/dL (10.7-15.3); LYMPH % 18.5 % (8-40); MCH 28.6 pg (25.7-33.7); MCHC 32.7 g/dl (32.0-36.0); MEAN CELL VOLUME 87.5 fl (80-96); MEAN PLT VOLUME 9.9 fl (7.5-11.1); NEUT % 70.3 % (42.8-82.8); PLATELET COUNT 335 K/MM3 (134-434); RBC 3.64 M/mm3 (3.60-5.2); RDW 15.2 % (11.6-15.6); WHITE BLOOD COUNT 14.9 K/mm3 (4.0-10.0)
[2020-09-21 20:19] LABS: POTASSIUM 4.1 mmol/L (3.5-5.1)
[2020-09-21 20:22] LABS: CALCIUM 9.4 mg/dL (8.5-10.1)
[2020-09-21 20:23] LABS: ALBUMIN 3.2 g/dl (3.4-5.0); BLOOD UREA NITROGEN 7.7 mg/dL (7-18)
[2020-09-21 20:26] LABS: CREATININE 0.7 mg/dL (0.55-1.3)
[2020-09-21 20:27] LABS: BILIRUBIN,TOTAL 0.1 mg/dL (0.2-1); TOT PROT 6.9 g/dl (6.4-8.2)
== END 2020-09-21 20:33 | disposition home or self-care (01) ==
LOC: JERFT 16:13 → JER 16:13 → JERFT 20:33
DX: L29.9 Pruritus, unspecified (principal)
CPT/HCPCS: 36415; 80053; 85025; 99283-25

== ENCOUNTER 2020-10-20 20:26 | Inpatient (IN) | payer OTHER ==
[2020-10-20] MEDS ORDERED: LACTATED RINGERS SOLUTION 1000 ML INFUS.BAG IV ONE (20:50)
[2020-10-20 21:22] LABS: BASO % 0.2 % (0-2.0); EOS % 0.8 % (0-4.5); HEMATOCRIT 27.6 % (32.4-45.2); LYMPH % 17.5 % (8-40); MCH 27.1 pg (25.7-33.7); MCHC 32.7 g/dl (32.0-36.0); MEAN CELL VOLUME 83.1 fl (80-96); MEAN PLT VOLUME 9.3 fl (7.5-11.1); MONO % 10.6 % (3.8-10.2); NEUT % 70.9 % (42.8-82.8); PLATELET COUNT 355 K/MM3 (134-434); RBC 3.32 M/mm3 (3.60-5.2); RDW 15.8 % (11.6-15.6); WHITE BLOOD COUNT 13.5 K/mm3 (4.0-10.0)
[2020-10-20 21:27] LABS: INR 0.98 (0.83-1.09); PROTHROMBIN TIME (PATIENT) 11.9 SEC (9.7-13.0)
[2020-10-20 21:29] LABS: ACTIVATED PTT 23.7 SECONDS (25.2-36.5)
[2020-10-20 21:48] LABS: CHLORIDE 106 mmol/L (98-107); SODIUM 138 mmol/L (136-145)
[2020-10-20 21:53] LABS: CALCIUM 9.4 mg/dL (8.5-10.1); GLUCOSE,RANDOM 77 mg/dL (74-106)
[2020-10-20 21:54] LABS: ALBUMIN 2.9 g/dl (3.4-5.0); ANION GAP 12 MMOL/L (8-16); BLOOD UREA NITROGEN 7.6 mg/dL (7-18); CO2 20 mmol/L (21-32)
[2020-10-20 21:55] LABS: CREATININE 0.6 mg/dL (0.55-1.3)
[2020-10-20 21:56] LABS: BILIRUBIN,TOTAL 0.2 mg/dL (0.2-1); SGOT/AST 13 U/L (15-37); SGPT/ALT 18 U/L (13-61)
[2020-10-20 21:57] LABS: ALK PHOS 140 U/L (45-117); TOT PROT 6.6 g/dl (6.4-8.2)
[2020-10-20 21:59] LABS: EPI CELLS >36 /uL (0-25.1); HYALINE CASTS 2 /uL (0-3.1); URINE APPEARANCE CLOUDY; URINE BACTERIA 861 /uL (0-1359); URINE BILIRUBIN NEGATIVE (NEGATIVE); URINE COLOR YELLOW; URINE GLUCOSE (UA) NEGATIVE (NEGATIVE); URINE KETONE TRACE (NEGATIVE); URINE LEUK ESTERASE 3+ (NEGATIVE); URINE NITRITE NEGATIVE (NEGATIVE); URINE PROTEIN 1+ (NEGATIVE); URINE RBC 21 /uL (0-23.9); URINE WBC 1249 /uL (0-25.8)
[2020-10-20] MEDS ORDERED: CEFTRIAXONE 1 GM in DEXTROSE 5%-WATER - 50 ML IVPB ONE (22:13)
[2020-10-20] MEDS ORDERED: CEFTRIAXONE 1 GM/50 ML BAG ONE (22:22)
[2020-10-21 05:36] LABS: HEMATOCRIT 24.3 % (32.4-45.2); HEMOGLOBIN 7.8 GM/dL (10.7-15.3); MCHC 32.3 g/dl (32.0-36.0); MEAN CELL VOLUME 83.5 fl (80-96); PLATELET COUNT 311 K/MM3 (134-434); RDW 15.9 % (11.6-15.6); WHITE BLOOD COUNT 10.8 K/mm3 (4.0-10.0)
[2020-10-21 05:55] LABS: POTASSIUM 3.6 mmol/L (3.5-5.1)
[2020-10-21 05:57] LABS: CALCIUM 8.6 mg/dL (8.5-10.1)
[2020-10-21 05:58] LABS: ALBUMIN 2.5 g/dl (3.4-5.0); BLOOD UREA NITROGEN 7.6 mg/dL (7-18); MAGNESIUM 1.8 mg/dL (1.8-2.4)
[2020-10-21 06:00] LABS: CREATININE 0.7 mg/dL (0.55-1.3)
[2020-10-21 06:01] LABS: PHOSPHOROUS 4.5 mg/dL (2.5-4.9)
[2020-10-21 06:02] LABS: BILIRUBIN,TOTAL 0.2 mg/dL (0.2-1); TOT PROT 5.6 g/dl (6.4-8.2)
[2020-10-21 07:09] VITALS: BMI 36.3
[2020-10-21] MEDS: INSULIN SLIDING SCALE (NOVOLOG) 1 VIAL SQ SCH ×4 (07:41→22:00)
[2020-10-21] MEDS ORDERED: cefTRIAXone SODIUM 1 GM VIAL ONE (09:31)
[2020-10-21] MEDS ORDERED: DEXTROSE 5%-WATER - 50 ML IVPB ONE (09:31)
[2020-10-21] MEDS: CEFTRIAXONE 1 GM in DEXTROSE 5%-WATER - 50 ML IVPB SCH (09:51)
[2020-10-21] MEDS ORDERED: IRON SUCROSE INJECTION 300 MG in SODIUM CHLORIDE 235 ML IVPB ONE (13:07)
[2020-10-22] MEDS: INSULIN SLIDING SCALE (NOVOLOG) 1 VIAL SQ SCH ×2 (06:30→12:49)
[2020-10-22 07:52] LABS: POTASSIUM 3.8 mmol/L (3.5-5.1)
[2020-10-22 07:56] LABS: CALCIUM 8.5 mg/dL (8.5-10.1)
[2020-10-22 07:57] LABS: BLOOD UREA NITROGEN 5.3 mg/dL (7-18)
[2020-10-22 07:59] LABS: BASO % 0.2 % (0-2.0); EOS % 1.3 % (0-4.5); HEMATOCRIT 26.6 % (32.4-45.2); HEMOGLOBIN 8.6 GM/dL (10.7-15.3); LYMPH % 14.9 % (8-40); MCH 27.1 pg (25.7-33.7); MCHC 32.4 g/dl (32.0-36.0); MEAN CELL VOLUME 83.7 fl (80-96); MEAN PLT VOLUME 9.5 fl (7.5-11.1); MONO % 12.2 % (3.8-10.2); NEUT % 71.4 % (42.8-82.8); PLATELET COUNT 310 K/MM3 (134-434); RBC 3.18 M/mm3 (3.60-5.2); RDW 15.8 % (11.6-15.6); WHITE BLOOD COUNT 9.7 K/mm3 (4.0-10.0)
[2020-10-22 08:00] LABS: CREATININE 0.5 mg/dL (0.55-1.3)
[2020-10-22 08:51] LABS: HIV INTERPRETATION NEGATIVE (NEGATIVE)
[2020-10-22 09:28] VITALS: BP 122/64; PULSE 101; TEMP 97.8
[2020-10-22] MEDS ORDERED: cefTRIAXone SODIUM 1 GM VIAL ONE (09:45)
[2020-10-22] MEDS ORDERED: DEXTROSE 5%-WATER - 50 ML IVPB ONE (09:45)
[2020-10-22] MEDS: CEFTRIAXONE 1 GM in DEXTROSE 5%-WATER - 50 ML IVPB SCH (09:58)
[2020-10-22] MEDS ORDERED: IRON SUCROSE INJECTION 200 MG in SODIUM CHLORIDE 90 ML IVPB ONE (12:00)
[2020-10-23 19:07] LABS: HEP B CORE AB, TOT Negative (Negative)
[2020-10-25 02:06] LABS: FIBROSIS SCORE. 0.01 (0.00-0.21); HCV ALPHA 2 MACRO CHART 147 mg/dL (110-276); NECRO.INFLAM ACT.SCORE 0.03 (0.00-0.17); NECROINFLAM. ACTIVITY GRADE A0-No activity (.)
== END 2020-10-22 14:08 | disposition home or self-care (01) | DRG 566 ==
LOC: JER 20:26 → JERBED 23:30 → J4W 10-21 06:49
PROVIDERS: ADMIT Hospitalist; ATTEND Internal Medicine
DX: O99.013 Anemia complicating pregnancy, third trimester (principal); D50.9 Iron deficiency anemia, unspecified; R55 Syncope and collapse; O24.420 Gestational diabetes mellitus in childbirth, diet controlled; Z3A.30 30 weeks gestation of pregnancy
CPT/HCPCS: 36415; 76815-TC; 80048; 80053; 81003; 82172; 82962; 82977; 83010; 83735; 83883; 84100; 84460; 84484; 85025; 85027; 85379; 85610; 85730; 86704; 86706; 86707; 86708; 86709; 86780; 86850; 86870; 86900; 86901; 86902; 87086; 87340; 87389; 93005; 93010; 99285-25; C9803; J1756; U0003

== ENCOUNTER 2020-12-31 07:44 | Inpatient (IN) | payer OTHER ==
[2020-12-31] MEDS: ELECTROLYTE-148 SOLN 1,000 ML IV SCH (09:30)
[2020-12-31 09:51] LABS: INR 0.98 (0.83-1.09); PROTHROMBIN TIME (PATIENT) 12.1 SEC (9.7-13.0)
[2020-12-31 09:54] LABS: ACTIVATED PTT 26.6 SECONDS (25.2-36.5)
[2020-12-31 09:59] LABS: POTASSIUM 4.3 mmol/L (3.5-5.1)
[2020-12-31 10:01] LABS: BLOOD UREA NITROGEN 12.7 mg/dL (7-18); CALCIUM 9.5 mg/dL (8.5-10.1)
[2020-12-31 10:04] LABS: BASO % 0.3 % (0-2.0); EOS % 0.6 % (0-4.5); HEMATOCRIT 32.2 % (32.4-45.2); HEMOGLOBIN 10.5 GM/dL (10.7-15.3); LYMPH % 17.4 % (8-40); MCH 26.9 pg (25.7-33.7); MCHC 32.6 g/dl (32.0-36.0); MEAN CELL VOLUME 82.5 fl (80-96); MONO % 13.3 % (3.8-10.2); NEUT % 68.4 % (42.8-82.8); PLATELET COUNT 266 K/MM3 (134-434); RBC 3.91 M/mm3 (3.60-5.2); RDW 19.5 % (11.6-15.6); WHITE BLOOD COUNT 9.5 K/mm3 (4.0-10.0)
[2020-12-31 10:05] LABS: CREATININE 0.8 mg/dL (0.55-1.3)
[2020-12-31] MEDS ORDERED: OXYTOCIN 30 UNITS in 0.9% NS 30 UNIT/500 ML INFUS.BAG IVPB ONE (10:08)
[2020-12-31] MEDS: OXYTOCIN 30 UNITS in 0.9% NS 30 UNIT/500 ML INFUS.BAG IVPB SCH (10:15)
[2020-12-31 12:51] VITALS: BMI 45.1
[2020-12-31] MEDS: ENOXAPARIN NA (PORCINE) 40 MG/0.4 ML DISP.SYRIN SQ SCH (12:59)
[2020-12-31] MEDS ORDERED: PCA PUMP NR ONE ×2 (13:31→23:00)
[2020-12-31] MEDS ORDERED: FENTANYL/BUPIVACAINE/NS/PF - PCEA - 50 ML DISP.SYRIN EP ONE (13:31)
[2020-12-31] MEDS ORDERED: BUPIVACAINE HCL/PF 0.25% (2.5MG/ML) 10 ML VIAL ONE (13:37)
[2020-12-31] MEDS: FENTANYL/BUPIVACAINE/NS/PF - PCEA - 50 ML DISP.SYRIN EP SCH (14:00)
[2020-12-31] MEDS ORDERED: NALOXONE HCL 0.4 MG/ML VIAL IVPUSH PRN (14:02)
[2020-12-31] MEDS ORDERED: LIDOCAINE HCL 1% PRESERVATIVE FREE - 30ML VIAL ONE (16:37)
[2020-12-31] MEDS ORDERED: OXYTOCIN 20 UNITS in 0.9% NS 20 UNIT/1,000 ML INFUS.BAG IV ONE ×2 (16:38→21:17)
[2020-12-31] MEDS ORDERED: ACETAMINOPHEN 325 MG TABLET (FP) ONE (20:21)
[2020-12-31] MEDS ORDERED: IBUPROFEN 600 MG TABLET (FP) PO ONE (20:21)
[2020-12-31] MEDS ORDERED: IBUPROFEN 800 MG/8 ML IJ IVPB ONE ×2 (20:25→21:36)
[2020-12-31] MEDS ORDERED: METHYLERGONOVINE MALEATE 0.2 MG/1 ML AMP IM PRN (21:35)
[2020-12-31] MEDS ORDERED: BENZOCAINE 28 GM HEMORRHOIDAL OINTMENT TP PRN (21:35)
[2020-12-31] MEDS ORDERED: WITCH HAZEL 50% (TUCKS) 40 PAD/JAR PAD TP PRN (21:35)
[2020-12-31] MEDS ORDERED: BENZOCAINE 20% 57 GM BOTTLE TP PRN (21:35)
[2020-12-31] MEDS ORDERED: BISACODYL 10 MG SUPP.RECT RC PRN (21:35)
[2020-12-31] MEDS ORDERED: OXYTOCIN 20 UNITS in 0.9% NS 20 UNIT/1,000 ML INFUS.BAG IV SCH (21:45)
[2020-12-31 22:01] LABS: CORD HCO3 22.7 mmHg (20-29); CORD PCO2 59.4 mmHg (30-78); CORD pH 7.201 (7.14-7.44)
[2020-12-31 22:05] LABS: CORD HCO3 21.8 mmHg (20-29); CORD PCO2 46.1 mmHg (30-78); CORD pH 7.292 (7.14-7.44)
[2021-01-01] MEDS ORDERED: IBUPROFEN 100 MG/5 ML UNIT DOSE CUPS PO PRN (00:35)
[2021-01-01] MEDS: IBUPROFEN 100 MG/5 ML UNIT DOSE CUPS PO PRN ×2 (03:26→22:20)
[2021-01-01] MEDS: ACETAMINOPHEN 650 MG/20.3 ML ORAL SOLUTION (CUPS) PO PRN ×2 (03:27→22:19)
[2021-01-01 08:39] LABS: BASO % 0.3 % (0-2.0); EOS % 0.1 % (0-4.5); HEMATOCRIT 28.6 % (32.4-45.2); HEMOGLOBIN 9.3 GM/dL (10.7-15.3); LYMPH % 10.2 % (8-40); MCH 26.8 pg (25.7-33.7); MCHC 32.5 g/dl (32.0-36.0); MEAN CELL VOLUME 82.6 fl (80-96); MEAN PLT VOLUME 10.2 fl (7.5-11.1); MONO % 11.1 % (3.8-10.2); NEUT % 78.3 % (42.8-82.8); PLATELET COUNT 259 K/MM3 (134-434); RBC 3.46 M/mm3 (3.60-5.2); RDW 18.7 % (11.6-15.6); WHITE BLOOD COUNT 15.9 K/mm3 (4.0-10.0)
[2021-01-01] MEDS: ENOXAPARIN NA (PORCINE) 40 MG/0.4 ML DISP.SYRIN SQ SCH (10:02)
[2021-01-01] MEDS: ACETAMINOPHEN 325 MG TABLET (FP) PO PRN ×2 (11:08→18:16)
[2021-01-01] MEDS: IBUPROFEN 600 MG TABLET (FP) PO PRN ×2 (11:09→18:17)
[2021-01-01] MEDS: OXYTOCIN 30 UNITS in 0.9% NS 30 UNIT/500 ML INFUS.BAG IVPB SCH (20:00)
[2021-01-01] MEDS: ELECTROLYTE-148 SOLN 1,000 ML IV SCH (20:01)
[2021-01-01] MEDS: FENTANYL/BUPIVACAINE/NS/PF - PCEA - 50 ML DISP.SYRIN EP SCH (20:01)
[2021-01-01] MEDS ORDERED: SENNOSIDES/DOCUSATE COMBO (SENNA PLUS) TABLET (UD) PO PRN (22:00)
[2021-01-02] MEDS: ACETAMINOPHEN 650 MG/20.3 ML ORAL SOLUTION (CUPS) PO PRN ×2 (08:05→11:48)
[2021-01-02] MEDS: ENOXAPARIN NA (PORCINE) 40 MG/0.4 ML DISP.SYRIN SQ SCH (11:47)
[2021-01-02] MEDS: IBUPROFEN 100 MG/5 ML UNIT DOSE CUPS PO PRN (11:48)
[2021-01-02 11:50] VITALS: BP 129/81; PULSE 87; TEMP 97.4
== END 2021-01-02 12:15 | disposition home or self-care (01) | DRG 560 ==
LOC: JLDR 07:44 → J3W 23:28
PROVIDERS: ADMIT Obstetrics & Gynecology; ATTEND Obstetrics & Gynecology
PROC: 10E0XZZ Delivery of Products of Conception, External Approach (ICD-10-PCS; principal; 2020-12-31)
PROC: 3E033VJ Introduction of Other Hormone into Peripheral Vein, Percutaneous Approach (ICD-10-PCS; 2020-12-31)
PROC: 0W8NXZZ Division of Female Perineum, External Approach (ICD-10-PCS; 2020-12-31)
DX: O48.0 Post-term pregnancy (principal); O24.424 Gestational diabetes mellitus in childbirth, insulin controlled; O70.0 First degree perineal laceration during delivery; O99.214 Obesity complicating childbirth; E66.9 Obesity, unspecified; Z3A.40 40 weeks gestation of pregnancy; Z37.0 Single live birth
CPT/HCPCS: 36415; 36600; 59409; 80048; 82803; 82962; 85025; 85461; 85610; 85730; 86780; 86850; 86900; 86901; 86999

== ENCOUNTER 2021-04-15 04:33 | Day surgery (SDC) | payer OTHER ==
[2021-04-12 09:58] VITALS: BMI 34.4
[2021-04-15] MEDS ORDERED: LIDOCAINE HCL 2% 100 MG/5 ML DISP.SYRIN ONE (09:20)
[2021-04-15] MEDS ORDERED: PROPOFOL 20 ML ONE ×2 (09:21)
[2021-04-15] MEDS ORDERED: MIDAZOLAM HCL 2 MG/2 ML SINGLE DOSE VIAL ONE (09:21)
[2021-04-15] MEDS ORDERED: ROCURONIUM BROMIDE 50 MG/5 ML SYRINGE ONE (09:21)
[2021-04-15] MEDS ORDERED: LIDOCAINE HCL/PF 2% SDV 5ML VIAL ONE (09:21)
[2021-04-15] MEDS ORDERED: BUPIVACAINE HCL/PF 0.5% (5MG/ML) 10 ML VIAL ONE (11:26)
[2021-04-15] MEDS ORDERED: KETOROLAC TROMETHAMINE 30 MG/1 ML VIAL ONE (12:04)
[2021-04-15] MEDS ORDERED: DEXAMETHASONE SOD PHOSPHATE 4 MG/1 ML VIAL ONE (12:04)
[2021-04-15] MEDS ORDERED: BUPIVACAINE HCL/PF 0.5% (5 MG/ML) 30 ML VIAL IJ ONE ×3 (12:08→12:18)
[2021-04-15] MEDS ORDERED: NEOSTIGMINE METHYLSULFATE 0.5 MG/ML - 10 ML MDV ONE (12:12)
[2021-04-15] MEDS ORDERED: GLYCOPYRROLATE 0.2 MG/1 ML VIAL ONE ×3 (12:12→12:15)
[2021-04-15] MEDS ORDERED: ACETAMINOPHEN 500 MG TABLET (FP) PO PRN (13:16)
[2021-04-15] MEDS ORDERED: oxyCODONE HCL 5 MG TABLET PO PRN (16:01)
[2021-04-15] MEDS ORDERED: oxyCODONE HCL 5 MG TABLET ONE (16:03)
[2021-04-15] MEDS ORDERED: ACETAMINOPHEN 650 MG/20.3 ML ORAL SOLUTION (CUPS) ONE (16:03)
[2021-04-15 17:53] VITALS: BP 110/72; PULSE 68; TEMP 98.8
== END 2021-04-15 18:07 | disposition home or self-care (01) ==
LOC: JASU-SURG 04:33
PROVIDERS: ATTEND Obstetrics & Gynecology
PROC: 0UB74ZZ Excision of Bilateral Fallopian Tubes, Percutaneous Endoscopic Approach (ICD-10-PCS; principal; 2021-04-15 10:00)
DX: Z30.2 Encounter for sterilization (principal)
CPT/HCPCS: 81025; 94760

== ENCOUNTER 2021-07-23 05:10 | Emergency (ER) | payer OTHER ==
[2021-07-23] MEDS ORDERED: SODIUM CHLORIDE 1,000 ML IV ONE (05:17)
[2021-07-23 05:18] VITALS: BMI 39.1
[2021-07-23] MEDS ORDERED: ACETAMINOPHEN 1000 MG/100 ML VIAL (NON FORMULARY) IVPB ONE (05:55)
[2021-07-23] MEDS ORDERED: ACETAMINOPHEN INJECTION 100 ML IVPB ONE (05:59)
[2021-07-23 06:06] LABS: BASO % 0.1 % (0-2.0); EOS % 0.8 % (0-4.5); HEMATOCRIT 41.6 % (32.4-45.2); HEMOGLOBIN 14.1 GM/dL (10.7-15.3); LYMPH % 9.9 % (8-40); MCH 31.2 pg (25.7-33.7); MEAN CELL VOLUME 91.8 fl (80-96); MEAN PLT VOLUME 10.2 fl (7.5-11.1); MONO % 7.1 % (3.8-10.2); NEUT % 82.1 % (42.8-82.8); PLATELET COUNT 231 10^3/uL (134-434); RBC 4.53 M/mm3 (3.60-5.2); RDW 16.1 % (11.6-15.6)
[2021-07-23 06:37] LABS: ALBUMIN 4.6 g/dl (3.4-5.0); BLOOD UREA NITROGEN 16.8 mg/dL (7-18); CALCIUM 9.1 mg/dL (8.5-10.1)
[2021-07-23 06:41] LABS: BILIRUBIN,TOTAL 0.3 mg/dL (0.2-1); TOT PROT 8.5 g/dl (6.4-8.2)
[2021-07-23 06:48] LABS: EPI CELLS >36 /uL (0-25.1); HYALINE CASTS 3 /uL (0-3.1); PH,URINE 5.5 (5.0-8.0); URINE APPEARANCE CLEAR; URINE BACTERIA 294 /uL (0-1359); URINE BILIRUBIN NEGATIVE (NEGATIVE); URINE COLOR YELLOW; URINE GLUCOSE (UA) NEGATIVE (NEGATIVE); URINE KETONE NEGATIVE (NEGATIVE); URINE LEUK ESTERASE NEGATIVE (NEGATIVE); URINE NITRITE NEGATIVE (NEGATIVE); URINE PROTEIN 1+ (NEGATIVE); URINE WBC 33 /uL (0-25.8)
[2021-07-23 07:16] LABS: URINE RBC 0 /uL (0-23.9)
[2021-07-23 09:17] VITALS: BP 121/72; PULSE 75; TEMP 97.4
== END 2021-07-23 09:30 | disposition home or self-care (01) ==
LOC: JER 05:10
PROC: 3E0333Z Introduction of Anti-inflammatory into Peripheral Vein, Percutaneous Approach (ICD-10-PCS; principal; 2021-07-23)
PROC: 3E0337Z Introduction of Electrolytic and Water Balance Substance into Peripheral Vein, Percutaneous Approach (ICD-10-PCS; 2021-07-23)
DX: K52.9 Noninfective gastroenteritis and colitis, unspecified (principal); R11.2 Nausea with vomiting, unspecified; R10.12 Left upper quadrant pain
CPT/HCPCS: 36415; 80053; 81003; 83690; 83735; 84703; 85025; 87086; 87186; 93005; 93010; 99284-25; J0131

== ENCOUNTER 2021-08-01 19:53 | Emergency (ER) | payer OTHER ==
[2021-08-01 20:02] VITALS: BP 133/86; PULSE 100; TEMP 98.6; BMI 35.9
== END 2021-08-01 23:05 | disposition home or self-care (01) ==
LOC: JERFT 19:53
PROC: 0JQ10ZZ Repair Face Subcutaneous Tissue and Fascia, Open Approach (ICD-10-PCS; principal; 2021-08-01)
DX: S01.01XA Laceration without foreign body of scalp, initial encounter (principal); Y04.0XXA Assault by unarmed brawl or fight, initial encounter; Y92.9 Unspecified place or not applicable
CPT/HCPCS: 99283-25

== ENCOUNTER 2021-08-11 16:42 | Emergency (ER) | payer OTHER ==
[2021-08-11 16:52] VITALS: BP 116/79; PULSE 117; TEMP 97; BMI 36.0
== END 2021-08-11 18:00 | disposition home or self-care (01) ==
LOC: JERFT 16:42
DX: S01.01XA Laceration without foreign body of scalp, initial encounter (principal); J45.20 Mild intermittent asthma, uncomplicated; Y99.9 Unspecified external cause status; Z48.02 Encounter for removal of sutures; Z76.0 Encounter for issue of repeat prescription
CPT/HCPCS: 99281-25

== ENCOUNTER 2022-03-16 21:07 | Emergency (ER) | payer OTHER ==
[2022-03-16 21:57] VITALS: BP 121/79; PULSE 96; TEMP 98.6; BMI 36.0
[2022-03-16] MEDS ORDERED: LIDOCAINE PATCH REMOVAL MC SCH (22:00)
[2022-03-16] MEDS ORDERED: LIDOCAINE 5% TOPICAL PATCH TP ONE (22:16)
[2022-03-16] MEDS ORDERED: ACETAMINOPHEN 500 MG TABLET (FP) PO ONE (22:16)
[2022-03-16] MEDS ORDERED: diazePAM 5 MG TABLET PO ONE (22:18)
[2022-03-16] MEDS ORDERED: ACETAMINOPHEN 325 MG TABLET (FP) ONE (22:29)
[2022-03-16] MEDS ORDERED: LIDOCAINE 5% TOPICAL PATCH ONE (22:29)
[2022-03-16] MEDS ORDERED: diazePAM 5 MG TABLET ONE (22:29)
[2022-03-16] MEDS ORDERED: KETOROLAC TROMETHAMINE 30 MG/1 ML VIAL IM ONE (23:29)
[2022-03-16] MEDS ORDERED: KETOROLAC TROMETHAMINE 30 MG/1 ML VIAL ONE (23:32)
== END 2022-03-17 00:46 | disposition home or self-care (01) ==
LOC: JER 21:07
PROC: 3E023GC Introduction of Other Therapeutic Substance into Muscle, Percutaneous Approach (ICD-10-PCS; principal; 2022-03-16)
DX: R51.9 Headache, unspecified (principal); M54.2 Cervicalgia; M54.50 Low back pain, unspecified; V49.40XA Driver injured in collision with unspecified motor vehicles in traffic accident, initial encounter
CPT/HCPCS: 99284-25

== ENCOUNTER 2022-03-26 17:00 | Emergency (ER) | payer OTHER ==
[2022-03-26 17:11] VITALS: BP 127/87; PULSE 84; TEMP 98.5; BMI 39.1
[2022-03-26] MEDS ORDERED: LACTATED RINGERS SOLUTION 1000 ML INFUS.BAG IV ONE (17:24)
[2022-03-26] MEDS ORDERED: ONDANSETRON 4 MG/2 ML VIAL IVPUSH ONE (17:24)
[2022-03-26] MEDS ORDERED: SUCRALFATE 1 GM TABLET (FP) PO ONE (17:24)
[2022-03-26] MEDS ORDERED: ACETAMINOPHEN 1000 MG/100 ML BAG IVPB ONE (17:24)
[2022-03-26] MEDS ORDERED: MAG HYDROX/AL HYDROX/SIMETH 30 ML UNIT-DOSE CUP PO ONE (17:24)
[2022-03-26] MEDS ORDERED: SUCRALFATE 1 GM TABLET (FP) ONE (17:40)
[2022-03-26] MEDS ORDERED: ACETAMINOPHEN INJECTION 100 ML IVPB ONE (17:41)
[2022-03-26] MEDS ORDERED: MAG HYDROX/AL HYDROX/SIMETH 30 ML UNIT-DOSE CUP ONE (17:41)
[2022-03-26] MEDS ORDERED: ONDANSETRON 4 MG/2 ML VIAL ONE (17:41)
[2022-03-26] MEDS ORDERED: FAMOTIDINE 20 MG/50 ML IVPB 20 MG/50 ML MG IVPB ONE (18:02)
[2022-03-26] MEDS ORDERED: FAMOTIDINE 10 MG/ML VIAL IVPB ONE (18:26)
[2022-03-26 18:42] LABS: BASO % 0.5 % (0-2.0); HEMATOCRIT 39.1 % (32.4-45.2); HEMOGLOBIN 12.9 GM/dL (10.7-15.3); MCH 28.9 pg (25.7-33.7); MCHC 32.8 g/dl (32.0-36.0); MEAN CELL VOLUME 87.9 fl (80-96); MEAN PLT VOLUME 10.1 fl (7.5-11.1); MONO % 9.5 % (3.8-10.2); PLATELET COUNT 221 10^3/uL (134-434); RBC 4.45 M/mm3 (3.60-5.2); RDW 15.5 % (11.6-15.6); WHITE BLOOD COUNT 6.5 K/mm3 (4.0-10.0)
[2022-03-26 18:44] LABS: CALCIUM 8.5 mg/dL (8.5-10.1)
[2022-03-26 18:45] LABS: ALBUMIN 3.9 g/dl (3.4-5.0); BLOOD UREA NITROGEN 8.9 mg/dL (7-18)
[2022-03-26 18:48] LABS: CREATININE 0.8 mg/dL (0.55-1.3)
[2022-03-26 18:50] LABS: BILIRUBIN,TOTAL 0.6 mg/dL (0.2-1); TOT PROT 7.6 g/dl (6.4-8.2)
[2022-03-26 19:07] LABS: MAGNESIUM 2.4 mg/dL (1.8-2.4)
[2022-03-26 19:11] LABS: PHOSPHOROUS 3.4 mg/dL (2.5-4.9)
== END 2022-03-26 20:59 | disposition home or self-care (01) ==
LOC: JER 17:00
DX: R11.10 Vomiting, unspecified (principal)
CPT/HCPCS: 36415; 80053; 83690; 83735; 84100; 84703; 85025; 93005; 93010; 99284-25

== ENCOUNTER 2022-03-28 15:50 | Emergency (ER) | payer OTHER ==
[2022-03-28 16:01] VITALS: BP 124/80; PULSE 73; TEMP 97.7; BMI 39.1
[2022-03-28] MEDS ORDERED: FAMOTIDINE 20 MG/50 ML IVPB 20 MG/50 ML MG IVPB ONE (16:53)
[2022-03-28] MEDS ORDERED: METOCLOPRAMIDE HCL INJECTION 10 MG/2 ML VIAL IVPUSH ONE (16:53)
[2022-03-28] MEDS ORDERED: SODIUM CHLORIDE 0.9% 500 ML INFUS.BAG IV ONE (16:53)
[2022-03-28] MEDS ORDERED: METOCLOPRAMIDE HCL INJECTION 10 MG/2 ML VIAL ONE (17:24)
[2022-03-28] MEDS ORDERED: FAMOTIDINE 10 MG/ML VIAL IVPB ONE (17:25)
[2022-03-28 17:33] LABS: EPI CELLS 23 /uL (0-25.1); HYALINE CASTS 0 /uL (0-3.1); PH,URINE 7.5 (5.0-8.0); URINE APPEARANCE CLEAR; URINE BACTERIA 135 /uL (0-1359); URINE BILIRUBIN NEGATIVE (NEGATIVE); URINE COLOR YELLOW; URINE GLUCOSE (UA) NEGATIVE (NEGATIVE); URINE KETONE NEGATIVE (NEGATIVE); URINE LEUK ESTERASE NEGATIVE (NEGATIVE); URINE NITRITE NEGATIVE (NEGATIVE); URINE PROTEIN TRACE (NEGATIVE); URINE RBC 38 /uL (0-23.9); URINE UROBILINOGEN 0.2 mg/dL (0.2-1.0); URINE WBC 9 /uL (0-25.8)
[2022-03-28 17:55] LABS: BASO % 0.4 % (0-2.0); EOS % 0.6 % (0-4.5); HEMATOCRIT 37.1 % (32.4-45.2); HEMOGLOBIN 12.1 GM/dL (10.7-15.3); LYMPH % 23.2 % (8-40); MCH 29.1 pg (25.7-33.7); MCHC 32.7 g/dl (32.0-36.0); MEAN CELL VOLUME 88.8 fl (80-96); MEAN PLT VOLUME 9.7 fl (7.5-11.1); MONO % 9.5 % (3.8-10.2); NEUT % 66.3 % (42.8-82.8); PLATELET COUNT 216 10^3/uL (134-434); RBC 4.17 M/mm3 (3.60-5.2); RDW 15.7 % (11.6-15.6); WHITE BLOOD COUNT 6.3 K/mm3 (4.0-10.0)
[2022-03-28 18:16] LABS: ALBUMIN 3.9 g/dl (3.4-5.0); BLOOD UREA NITROGEN 10.8 mg/dL (7-18)
[2022-03-28 18:19] LABS: CREATININE 0.8 mg/dL (0.55-1.3)
[2022-03-28 18:20] LABS: BILIRUBIN,TOTAL 0.2 mg/dL (0.2-1); TOT PROT 7.4 g/dl (6.4-8.2)
== END 2022-03-28 19:08 | disposition home or self-care (01) ==
LOC: JER 15:50
PROC: 3E033GC Introduction of Other Therapeutic Substance into Peripheral Vein, Percutaneous Approach (ICD-10-PCS; principal; 2022-03-28)
PROC: 3E033GC Introduction of Other Therapeutic Substance into Peripheral Vein, Percutaneous Approach (ICD-10-PCS; 2022-03-28)
DX: R10.13 Epigastric pain (principal); R11.2 Nausea with vomiting, unspecified
CPT/HCPCS: 36415; 74019-TC-FY; 80053; 81003; 83690; 84703; 85025; 87086; 99284-25

== ENCOUNTER 2022-04-15 18:30 | Emergency (ER) | payer OTHER ==
[2022-04-15 18:50] VITALS: BP 134/80; PULSE 96; TEMP 98; BMI 38.8
[2022-04-15] MEDS ORDERED: KETOROLAC TROMETHAMINE 30 MG/1 ML VIAL IM ONE (19:43)
[2022-04-15] MEDS ORDERED: KETOROLAC TROMETHAMINE 30 MG/1 ML VIAL ONE (19:45)
== END 2022-04-15 20:23 | disposition home or self-care (01) ==
LOC: JERFT 18:30
PROC: 3E023GC Introduction of Other Therapeutic Substance into Muscle, Percutaneous Approach (ICD-10-PCS; principal; 2022-04-15)
DX: M72.2 Plantar fascial fibromatosis (principal)
CPT/HCPCS: 73630-TC-LT; 99284-25

== ENCOUNTER 2022-10-04 10:30 | Emergency (ER) | payer OTHER ==
[2022-10-04 10:37] VITALS: BP 143/84; PULSE 93; RESP 16; TEMP 97.7; BMI 36.0
[2022-10-04] MEDS ORDERED: LIDOCAINE 5% TOPICAL PATCH TP ONE (11:10)
[2022-10-04] MEDS ORDERED: KETOROLAC TROMETHAMINE 30 MG/1 ML VIAL IM ONE (11:10)
[2022-10-04] MEDS ORDERED: LIDOCAINE 5% TOPICAL PATCH ONE (11:36)
[2022-10-04] MEDS ORDERED: KETOROLAC TROMETHAMINE 30 MG/1 ML VIAL ONE (11:36)
[2022-10-04 12:06] LABS: PH,URINE 5.5 (5.0-8.0); URINE APPEARANCE CLOUDY; URINE BILIRUBIN NEGATIVE (NEGATIVE); URINE COLOR YELLOW; URINE GLUCOSE (UA) NEGATIVE (NEGATIVE); URINE KETONE NEGATIVE (NEGATIVE); URINE LEUK ESTERASE NEGATIVE (NEGATIVE); URINE NITRITE NEGATIVE (NEGATIVE); URINE PROTEIN NEGATIVE (NEGATIVE); URINE UROBILINOGEN 0.2 mg/dL (0.2-1.0)
== END 2022-10-04 12:30 | disposition home or self-care (01) ==
LOC: JERFT 10:30
PROC: 3E0233Z Introduction of Anti-inflammatory into Muscle, Percutaneous Approach (ICD-10-PCS; principal; 2022-10-04)
DX: M54.50 Low back pain, unspecified (principal)
CPT/HCPCS: 81003; 84703; 87086; 99284-25

== ENCOUNTER 2024-04-05 12:37 | Emergency (ER) | payer OTHER ==
[2024-04-05 12:49] VITALS: BP 130/87; PULSE 83; RESP 17; TEMP 97.9; BMI 40.7
== END 2024-04-05 15:10 | disposition home or self-care (01) ==
LOC: JERFT 12:37
DX: N93.9 Abnormal uterine and vaginal bleeding, unspecified (principal); R10.30 Lower abdominal pain, unspecified
CPT/HCPCS: 99283-25; 99284-25